=== PATIENT | male | born 1930 | race African-American/Black ===

== ENCOUNTER 2017-08-09 18:43 | Inpatient (IN) | payer OTHER ==
[~2017-08-09] VITALS: Ht 172.7 cm; Wt 68.2 kg
--- NOTE | ~2017-08-09 | HC ---
[facility] [place] [address] CONSULTATION Name: FARZANA FIORE Room #: [address] [place] [address] IN M.R.#: [id number] Admission: 08/09/17 Attend Phys: Triston Mathew DO Discharge: 08/14/17 Date of : 31 Report #: [id number] THIS REPORT FOR: //name// CC: Triston Cruz DATE OF SERVICE: 08/12/2017 HISTORY OF PRESENT ILLNESS: This is an 87-year-old male patient for whom a Neurology consultation was requested for the patient's memory problem as well as confusion. History is from the family as the patient is not able to provide any reliable history. Even from the family, the history is extremely poor. It looks like he was having some memory problems for some time, how long it was going on is not clear, looks like it was a chronic process for several months to several year. It has become recently worse. It would appear it has become worse with bladder infection for which he is being treated. Now they believe the memory problem is severe. REVIEW OF SYSTEMS: Indicate that he is admitted with urinary tract infection. He did have a generalized weakness. Record indicates that he has a history of thrombocytopenia. He is also admitted with renal problems and he is being followed by Nephrology in that regard. He is pretty significantly confused. I carried out 14-point review of system in this patient and that was the relevant 14-point review of system. PAST MEDICAL HISTORY: Does indicate that he does appear to have memory problems. FAMILY HISTORY: Negative for any early age stroke. SOCIAL HISTORY: He lives with his and I talked to them. He has a daughter and I talked to her and I understand he does not drink any alcohol. PHYSICAL EXAMINATION: Indicate that he is alert and responsive. We knew it was July. He could not tell me what date it is. His speech is somewhat slow, but is otherwise unremarkable. His memory and fund of knowledge is very poor. Cranial nerve examination 2-12 was attempted. The patient did not cooperate at all, but I do not see any focality. I tried to look at the fundus and he would not cooperate. He moves all four extremity and I believe his position sense is okay. I need to cooperate with the tone examination, cerebellar sign. Reflexes are fundus. He does not appear to have meningeal sign. He is reasonably well-developed individual who does not have any dysmorphic features of eyes, ears and face. His vision and hearing looks adequate. His pulses are difficult to feel. He has no edema, cyanosis or jaundice. Cardiac examination is unremarkable. No respiratory difficulty was noticed. Last blood pressure was 152/200, but his blood pressure has fluctuated and gone into 90s and even 70s. [address] [address] CONSULTATION Name: FARZANA FIORE Room #: 360-P [facility] IN M.R.#: [id number] Admission: 08/09/17 Attend Phys: Triston Mathew DO Discharge: 08/14/17 Date of : 31 Report #: [id number] LABORATORY DATA: Indicate platelet count now of 87, it was as low as 49. His white count is 2.7. He did have a CT scan of the head and that does not show any acute changes. His lab also indicate that he has high alkaline phosphatase, AST and ALT. IMPRESSION: This patient appeared to have encephalopathy. It is difficult to tell how much dementia he has underlying this. That will require further workup. Some workup has already been done like TSH and vitamin B12. I recommended further workup starting with MRI and an EEG, but the family refused that. RECOMMENDATIONS: I recommended to the family that we will do further workup. I wanted to start with MRI and EEG and the family does not think he needs that and they declined those testing. The patient is not able to make his decision. I told them to let me know if they change their mind. Please call if the patient's family change their mind and I will be happy to follow up on this patient. If not, the patient's family does not want any further testing and we will not be following up this patient. Thank you very much for this referral and if you have any question, please feel free to contact me. <ELECTRONICALLY SIGNED> By: Ignacio Roa MD 08/14/17 1348 1748 Ignacio Roa MD /nt
--- NOTE | ~2017-08-09 | HC ---
[facility] [place] [address] CONSULTATION Name: FARZANA FIORE Room #: 360- ADM IN M.R.#: [id number] Admission: 08/09/17 Attend Phys: Triston Mathew DO Discharge: Date of : 31 Report #: [id number] THIS REPORT FOR: //name// CC: Triston Cruz DATE OF SERVICE: 08/12/2017 REASON FOR CONSULTATION: Elevated creatinine. ATTENDING PHYSICIAN: Dr. Mathew. HISTORY OF PRESENT ILLNESS: The patient is giving very little in the way of history. History is taken from his and the electronic medical record. An 87-year-old gentleman, presents with progressive weakness and confusion. He had a serious injury a year and a half ago with some head trauma. Since that time, mentation has not quite been the same, although he is normally awake and alert. He can get around a little bit with a walker, before that it was fairly normal in terms of his walking. Apparently, he had some sort of surgery on his cervical spine at [facility] at that time. Over the last several weeks, he had a urinary tract infection and was treated with Bactrim. He became weak with poor appetite that improved and then worsened again with more symptoms including some hematuria and difficulty with urination, came to the Emergency Room here, was found to have evidence of urinary infection, but no growth. HOME MEDICATIONS: Listed as naproxen 220 mg p.r.n. pain q.8 hours, Proscar 5 mg daily, Carafate 1 gram q.i.d., hydrochlorothiazide, tamsulosin 0.4 mg daily, potassium 10 mEq daily, Bactrim one tab every 12 hours, omeprazole 20 mg daily, donepezil 5 mg daily, p.r.n. ondansetron. 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 He has had previous hernia repair and some prostate surgeries. There is some remote history of rectal bleeding. FAMILY HISTORY: Positive for cancer in his mother. SOCIAL HISTORY: He is a remote smoker, remote drinker, nothing recent. REVIEW OF SYSTEMS: Really cannot be obtained from the patient as he is quite lethargic. According to the , he has become more lethargic with worse appetite and p.o. intake, although that had gotten a little better yesterday, worse today. [facility] [address] [place] [address] CONSULTATION Name: FARZANA FIORE Room #: 360-P [facility] IN M.R.#: [id number] Admission: 08/09/17 Attend Phys: Triston Mathew DO Discharge: Date of : 31 Report #: [id number] EYES: His eyesight is okay. ENT: Hearing and swallowing are normally okay. ENDOCRINE: There is no diabetes. RESPIRATORY: He has no shortness of breath or wheezing. CARDIAC: There is no history of heart disease, heart failure, angina or palpitations. GASTROINTESTINAL: He had a remote rectal bleed, but no recent nausea, vomiting or diarrhea. GENITOURINARY: He has had a little bit of dysuria. NEUROLOGIC: A little bit of chronic confusion, of course. As noted, he is on Aricept. PHYSICAL EXAMINATION: GENERAL: This is a chronically ill-appearing gentleman. SKIN: Unremarkable. SKELETAL: Shows him to be nonobese, well developed, well nourished. HEENT: Extraocular movements are difficult to measure. Pupils are reactive. No scleral icterus. Hearing appears to be intact. Mucous membranes are slightly dry. Neck veins are not distended. CHEST: Shows slightly coarse breath sounds. HEART: Regular. ABDOMEN: Soft and nontender. EXTREMITIES: Show no edema. NEUROLOGIC: Just shows a lot of lethargy, but he can move all extremities. LABORATORY DATA: Urinalysis did show some white cells and some bacteria, no growth so far. Hepatitis screen was negative. LFTs were elevated. Hemoglobin 10.8. The AST was 48, had been 230; the ALT was 248, down now to 119. The albumin is only 2.1. ASSESSMENT AND PLAN: 1. Chronic kidney disease. Creatinine is 2.1, down from 2.6 with gentle hydration. The denies any chronic kidney disease and the sonogram was not that remarkable. He has had apparently hypertension that could be accounting for some of this. Paraprotein studies and urine protein studies are ordered. 2. Change in mental status. He may have a urinary infection that is only partially treated. We will need to possibly re-treat, so far there is no growth. 3. History of cervical spine injury with a fall. He apparently can get around with a walker. Right now, he is very weak. 4. History of prostate enlargement, status post prostate surgeries. By: 1142 1643 Jesse Tabor MD /nt
[2017-08-09 18:45] VITALS: BP 103/41
[2017-08-09] MEDS ORDERED: ALEVE220 MG PO (18:59)
[2017-08-09] MEDS ORDERED: PROSCAR 5MG TABL5 MG PO (18:59)
[2017-08-09] MEDS ORDERED: HYDROCHLOROTHIA25 M1 PO (19:00)
[2017-08-09] MEDS ORDERED: CARAFATE 1 GM TA1 G1 PO (19:00)
[2017-08-09] MEDS ORDERED: KLOR-CON 1010 MEQ PO (19:01)
[2017-08-09] MEDS ORDERED: LOPERAMIDE 2 MG2 M1 PO (19:01)
[2017-08-09] MEDS ORDERED: FLOMAX0.4 MG PO (19:01)
[2017-08-09] MEDS ORDERED: OMEPRAZOLE20 MG PO (19:02)
[2017-08-09] MEDS ORDERED: BACTRIM DS TAB1 EACH PO (19:02)
[2017-08-09] MEDS ORDERED: DONEPEZIL HCL 55 M1 PO (19:03)
[2017-08-09] MEDS ORDERED: ZOFRAN ODT4 MG DISSOLVE (19:03)
[2017-08-09 20:06] LABS: HEMATOCRIT 35.8 % (42.0-52.0); HEMOGLOBIN 11.8 gm/dL (14.0-18.0); MCH 26.3 pg (26.0-34.0); MCHC 33.1 g/dL (28.0-37.0); MCV 79.6 fL (80.0-100.0); RDW 16.6 % (10.5-14.5); WBC 3.5 thou/uL (4.0-11.0)
[2017-08-09 20:08] LABS: MANUAL DIFF YES
[2017-08-09 20:13] LABS: CALCIUM 10.1 mg/dL (8.5-10.1); CREATININE 2.6 mg/dL (0.7-1.3); POTASSIUM 5.2 mmol/L (3.5-5.1)
[2017-08-09 20:19] LABS: ALBUMIN 2.4 g/dL (3.4-5.0); DIRECT BILIRUBIN 0.5 mg/dL (<0.1-0.3); TOTAL BILIRUBIN 0.6 mg/dL (<0.1-1.0); TOTAL PROTEIN 5.8 g/dL (6.4-8.2)
[2017-08-09 20:30] LABS: ABSOLUTE NEUTROPHILS 3.3 thou/uL (1.4-8.2); TOTAL CELL COUNT 100
[2017-08-09 20:31] LABS: ANISOCYTOSIS 1+; POLYCHROMASIA OCCASIONAL
[2017-08-09 20:32] LABS: URINE BILIRUBIN NEGATIVE (Negative); URINE BLOOD NEGATIVE (Negative); URINE COLOR YELLOW; URINE GLUCOSE-RANDOM* NEGATIVE (Negative); URINE KETONES NEGATIVE (Negative); URINE PROTEIN (DIPSTICK) NEGATIVE (Negative)
[2017-08-09 20:32] LABS: MICROCYTES 1+; PLATELET COUNT 49 thou/uL (150-400)
[2017-08-09 20:34] LABS: URINE LEUKOCYTES-REFLEX 2+ (Negative)
[2017-08-09 20:36] LABS: SQUAMOUS None Seen /LPF (0-3)
[2017-08-09 20:37] LABS: CASTS None Seen /LPF (None Seen); CRYSTALS None Seen /LPF (None Seen); URINE RBC None Seen /HPF (0-2)
[2017-08-09 22:00] VITALS: BP 74/48; BP 85/45
[2017-08-10] VITALS (8 sets, daily range): BP systolic 76–111; BP diastolic 45–74
[2017-08-10 06:09] LABS: HEMOGLOBIN 10.7 gm/dL (14.0-18.0); MCHC 32.4 g/dL (28.0-37.0); MCV 80.1 fL (80.0-100.0); RBC 4.13 mil/uL (4.50-6.00); RDW 16.3 % (10.5-14.5); WBC 2.4 thou/uL (4.0-11.0)
[2017-08-10 06:29] LABS: CALCIUM 9.2 mg/dL (8.5-10.1); CREATININE 2.4 mg/dL (0.7-1.3); POTASSIUM 5.1 mmol/L (3.5-5.1); TOTAL BILIRUBIN 0.3 mg/dL (<0.1-1.0)
[2017-08-11 07:52] VITALS: BP 113/74
[2017-08-11 08:10] VITALS: BP 113/74
[2017-08-11 09:42] LABS: HEMOGLOBIN 10.8 gm/dL (14.0-18.0); MCH 26.3 pg (26.0-34.0); MCHC 32.8 g/dL (28.0-37.0); MCV 80.3 fL (80.0-100.0); PLATELET COUNT 68 thou/uL (150-400); RBC 4.11 mil/uL (4.50-6.00); RDW 16.7 % (10.5-14.5); WBC 2.4 thou/uL (4.0-11.0)
[2017-08-11 09:43] LABS: MANUAL DIFF YES
[2017-08-11 09:59] LABS: CALCIUM 9.8 mg/dL (8.5-10.1); CREATININE 2.2 mg/dL (0.7-1.3); POTASSIUM 4.9 mmol/L (3.5-5.1)
[2017-08-11 10:04] LABS: ALBUMIN 2.1 g/dL (3.4-5.0); TOTAL BILIRUBIN 0.2 mg/dL (<0.1-1.0); TOTAL PROTEIN 5.4 g/dL (6.4-8.2)
[2017-08-11 10:15] LABS: ABSOLUTE NEUTROPHILS 1.8 thou/uL (1.4-8.2); TOTAL CELL COUNT 50
[2017-08-11 10:16] LABS: ANISOCYTOSIS 2+; POLYCHROMASIA OCCASIONAL
[2017-08-11 10:57] VITALS: BP 89/30
[2017-08-11 12:34] VITALS: BP 103/75
[2017-08-11 17:30] VITALS: BP 131/67
[2017-08-11 19:30] VITALS: BP 131/68; BP 131/79
[2017-08-11 22:09] LABS: HEPATITIS C VIRUS AB <0.1 (0.0-0.9)
[2017-08-12 05:00] VITALS: BP 139/86
[2017-08-12 06:16] LABS: HEMOGLOBIN 10.8 gm/dL (14.0-18.0); MCH 26.1 pg (26.0-34.0); MCHC 32.8 g/dL (28.0-37.0); MCV 79.6 fL (80.0-100.0); PLATELET COUNT 87 thou/uL (150-400); RBC 4.14 mil/uL (4.50-6.00); RDW 16.8 % (10.5-14.5); WBC 2.7 thou/uL (4.0-11.0)
[2017-08-12 06:17] LABS: MANUAL DIFF YES
[2017-08-12 06:29] LABS: ALBUMIN 2.1 g/dL (3.4-5.0); CALCIUM 9.9 mg/dL (8.5-10.1); CREATININE 2.1 mg/dL (0.7-1.3); POTASSIUM 5.3 mmol/L (3.5-5.1); TOTAL BILIRUBIN 0.3 mg/dL (<0.1-1.0); TOTAL PROTEIN 5.4 g/dL (6.4-8.2)
[2017-08-12 08:10] VITALS: BP 143/86
[2017-08-12 08:29] LABS: ABSOLUTE NEUTROPHILS 1.9 thou/uL (1.4-8.2); PLATELET ESTIMATE DECREASED; TOTAL CELL COUNT 100
[2017-08-12 12:00] VITALS: BP 150/103
[2017-08-12 15:00] LABS: PROT/CREAT RATIO 0.3; URINE CREATININE-RANDOM* 29.4 mg/dL; URINE PROTEIN-RANDOM* 8.1 mg/dL (<11.9)
[2017-08-12 16:52] VITALS: BP 152/100
[2017-08-12 19:35] VITALS: BP 158/89
[2017-08-13 03:49] VITALS: BP 144/55
[2017-08-13 04:43] VITALS: BP 171/93
[2017-08-13 06:38] LABS: HEMATOCRIT 33.8 % (42.0-52.0); HEMOGLOBIN 11.1 gm/dL (14.0-18.0); MCH 26.2 pg (26.0-34.0); MCHC 32.9 g/dL (28.0-37.0); MCV 79.8 fL (80.0-100.0); PLATELET COUNT 87 thou/uL (150-400); RBC 4.23 mil/uL (4.50-6.00); RDW 16.6 % (10.5-14.5); WBC 2.8 thou/uL (4.0-11.0)
[2017-08-13 06:45] LABS: MANUAL DIFF YES
[2017-08-13 06:47] LABS: CALCIUM 10.2 mg/dL (8.5-10.1); CREATININE 1.6 mg/dL (0.7-1.3); POTASSIUM 5.3 mmol/L (3.5-5.1)
[2017-08-13 08:05] LABS: ABSOLUTE NEUTROPHILS 2.1 thou/uL (1.4-8.2); ANISOCYTOSIS 1+; METAMYELOCYTES 1 %; TOTAL CELL COUNT 100
[2017-08-13 08:06] LABS: OVALOCYTES FEW
[2017-08-13] MEDS ORDERED: KEFLEX500 M2 PO (08:23)
[2017-08-13 08:24] VITALS: BP 173/92
[2017-08-13 13:00] VITALS: BP 151/75
[2017-08-13 13:11] LABS: KAPPA FREE LIGHT CHAINS 82.1 mg/L (3.3-19.4); KAPPA/LAMBDA RATIO 2.46 (0.26-1.65); LAMBDA FREE LIGHT CHAINS 33.4 mg/L (5.7-26.3)
[2017-08-13 16:46] VITALS: BP 150/80
[2017-08-13 19:30] VITALS: BP 152/76
[2017-08-14 03:20] VITALS: BP 179/86
[2017-08-14 07:34] VITALS: BP 167/92
[2017-08-14] MEDS ORDERED: NORVASC5 MG PO (08:05)
[2017-08-15 07:12] LABS: A/G RATIO 0.9 (0.7-1.7); ALBUMIN 2.4 g/dL (2.9-4.4); ALPHA 1 0.3 g/dL (0.0-0.4); ALPHA 2 0.6 g/dL (0.4-1.0); BETA 0.9 g/dL (0.7-1.3); GAMMA 0.8 g/dL (0.4-1.8); M-SPIKE Not Observed g/dL (Not Observed)
== END 2017-08-14 13:31 | DRG 871 ==
LOC: ER 18:43 → 3W 21:15 → EROBS 21:15 → 3W 23:50
PROVIDERS: Emergency Medicine; Family Medicine; Internal Medicine Nephrology; Nurse Practitioner Acute Care
DX: A41.9 Sepsis, unspecified organism (principal); E43 Unspecified severe protein-calorie malnutrition; N17.0 Acute kidney failure with tubular necrosis; G93.40 Encephalopathy, unspecified; N39.0 Urinary tract infection, site not specified; D61.818 Other pancytopenia; I12.9 Hypertensive chronic kidney disease with stage 1 through stage 4 chronic kidney disease, or unspecified chronic kidney disease; E86.0 Dehydration; D69.6 Thrombocytopenia, unspecified; N18.3 Chronic kidney disease, stage 3 (moderate); E83.42 Hypomagnesemia; R74.0 Nonspecific elevation of levels of transaminase and lactic acid dehydrogenase [LDH]; F03.90 Unspecified dementia, unspecified severity, without behavioral disturbance, psychotic disturbance, mood disturbance, and anxiety; T37.0X5A Adverse effect of sulfonamides, initial encounter; Z28.21 Immunization not carried out because of patient refusal; Z68.22 Body mass index [BMI] 22.0-22.9, adult; Y92.89 Other specified places as the place of occurrence of the external cause; Z79.899 Other long term (current) drug therapy; Z87.891 Personal history of nicotine dependence; Z80.8 Family history of malignant neoplasm of other organs or systems
CPT/HCPCS: 10879

== ENCOUNTER 2017-08-30 15:22 | Emergency (ER) | payer MEDICARE ==
[~2017-08-30] VITALS: Ht 172.7 cm; Wt 65.8 kg
[~2017-08-30 15:22] MED LIST: ALEVE220 MG PO; BACTRIM DS TAB1 EACH PO; CARAFATE 1 GM TA1 G1 PO; DONEPEZIL HCL 55 M1 PO; FLOMAX0.4 MG PO; HYDROCHLOROTHIA25 M1 PO; KEFLEX500 M2 PO; KLOR-CON 1010 MEQ PO; LOPERAMIDE 2 MG2 M1 PO; NORVASC5 MG PO; OMEPRAZOLE20 MG PO; PROSCAR 5MG TABL5 MG PO; ZOFRAN ODT4 MG DISSOLVE
[2017-08-30 16:27] LABS: HEMATOCRIT 34.4 % (42.0-52.0); HEMOGLOBIN 11.3 gm/dL (14.0-18.0); MCH 26.3 pg (26.0-34.0); MCHC 32.9 g/dL (28.0-37.0); MCV 79.9 fL (80.0-100.0); PLATELET COUNT 184 thou/uL (150-400); RDW 17.1 % (10.5-14.5)
[2017-08-30 16:39] LABS: ANION GAP 6 mmol/L (7-16); BUN 52 mg/dL (7-18); CALCIUM 10.5 mg/dL (8.5-10.1); CHLORIDE 105 mmol/L (98-107); CO2 30 mmol/L (21-32); CREATININE 1.2 mg/dL (0.7-1.3); GLUCOSE 92 mg/dL (74-106); POTASSIUM 4.6 mmol/L (3.5-5.1); SODIUM 141 mmol/L (136-145)
[2017-08-30 16:45] LABS: DIRECT BILIRUBIN < 0.1 mg/dL (<0.1-0.3); SGOT 36 U/L (15-37); SGPT 46 U/L (30-65); TOTAL BILIRUBIN 0.2 mg/dL (<0.1-1.0); TOTAL PROTEIN 6.9 g/dL (6.4-8.2)
[2017-08-30 17:00] LABS: ABSOLUTE NEUTROPHILS 1.4 thou/uL (1.4-8.2); ANISOCYTOSIS 2+; MICROCYTES 1+
[2017-08-30 17:01] LABS: POIKILOCYTOSIS SLIGHT
[2017-08-30 17:21] LABS: URINE BILIRUBIN NEGATIVE (Negative); URINE BLOOD NEGATIVE (Negative); URINE CLARITY CLEAR; URINE COLOR YELLOW; URINE GLUCOSE-RANDOM* NEGATIVE (Negative); URINE KETONES NEGATIVE (Negative); URINE LEUKOCYTES NEGATIVE (Negative); URINE NITRITE NEGATIVE (Negative); URINE PROTEIN (DIPSTICK) NEGATIVE (Negative); URINE SPECIFIC GRAVITY <= 1.005 (1.005-1.035); URINE UROBILINOGEN 0.2 E.U./dl (0.2-1.0)
[2017-08-30 17:49] VITALS: BP 115/64
== END 2017-08-30 18:07 | disposition home or self-care (01) ==
LOC: ER 15:22
PROVIDERS: Nurse Practitioner
DX: R78.9 Finding of unspecified substance, not normally found in blood (principal); Z98.890 Other specified postprocedural states

== ENCOUNTER 2017-10-05 20:29 | Inpatient (IN) | payer MEDICARE ==
[~2017-10-05] VITALS: Ht 172.7 cm; Wt 69.4 kg
--- NOTE | ~2017-10-05 | HC ---
[facility] [address] [address] [place] [address] CONSULTATION Name: FARZANA FIORE Room #: 354-P [facility] IN M.R.#: [id number] Admission: 10/05/17 Attend Phys: Triston Mathew DO Discharge: 10/07/17 Date of : 31 Report #: [id number] THIS REPORT FOR: //name// CC: JOHN physician/PCP Triston Mathew DATE OF SERVICE: 10/07/2017 HISTORY OF PRESENT ILLNESS: The patient is an 87-year-old male who was admitted with generalized weakness, noted to have acute respiratory failure, suspected aspiration pneumonia and dehydration, acute renal insufficiency, toxic metabolic encephalopathy. His respiratory failure is resolving. He has been on IV Levaquin for the aspiration pneumonia. He has been given IV fluids to help with acute renal failure. He has been okay and put on diet. He is on pureed with nectar-thickened liquids. We are seeing him in rehabilitation medicine consultation. PAST MEDICAL HISTORY: Includes BPH, hypertension, he had a prior cervical injury and has residual left upper extremity weakness, history of GERD. He has had hernia repair, prostate surgery x 2, history of falls and rectal bleeding. MEDICATIONS: Please see the full medication listing. ALLERGIES: No known drug allergies. SOCIAL HISTORY: Lives with his , house 2 steps in. They are apparently arranging for a hospital bed for him. The notes that her daughter is there as well and they will assist him getting out of bed. They also will need to help him manually, although at times he is able to do more for himself. He has had a recent stay at the [facility] going home last month. REVIEW OF SYSTEMS: Did not offer any current complaints of chest pain, shortness of breath, abdominal discomfort. No focal extremity pain complaints. PHYSICAL EXAMINATION: GENERAL: An 87-year-old male, in no obvious distress. VITAL SIGNS: Last recorded temperature 98.8, pulse 79, respirations 18, blood pressure 145/84. NEUROLOGIC: The patient is lying in bed. He was sleeping, but I could arouse him. Appears to have some left facial droop with depressed nasolabial fold. He was able to answer in short statements, but tends to defer more to his . EOMs otherwise appeared intact and facies appeared symmetric. Does have definite left upper extremity proximal weakness with decreased tone. He appears weaker more involving the shoulder than the elbow, wrist and hand. Shoulder strength appeared less than antigravity. Elbow, wrist and hand, probably a grade 3. Right upper extremity strength is better at a grade 4-. Bilateral [address] [address] CONSULTATION Name: FARZANA FIORE Room #: 354-P [facility] IN M.R.#: [id number] Admission: 10/05/17 Attend Phys: Triston Mathew DO Discharge: 10/07/17 Date of : 31 Report #: [id number] lower extremity strength is probably at 3+. No focal calf swelling. He has been max assist supine to sit edge of bed and stood with max assist. IMPRESSION: 1. Toxic metabolic encephalopathy. 2. Severe dysphagia, currently on pureed with nectar-thickened liquid. 3. Acute respiratory failure. 4. Suspected aspiration pneumonia. 5. Acute renal insufficiency. 6. Premorbid cervical injury with left upper extremity proximal greater than distal weakness. PLAN: Therapies are continuing their evaluation. Discussion with the patient's and daughter regarding rehab therapy issues. We will be glad to follow along with you regarding his rehab therapy needs. Pending his therapy evaluations. Insurance will need to be checked regarding any rehab therapy from here. We will be glad to follow along with you. <ELECTRONICALLY SIGNED> By: Nav Barrientos MD 10/08/17 1554 1103 2210 Nav Barrientos MD /[facility]
--- NOTE | ~2017-10-05 | EKG ---
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: 99 : 1930 Requested By: Silvino Gutiérrez Order Number: [id number] MD: Gm Yadav Measurements Intervals [place] Rate: 55 P: 17 LA: 355 QRS: 9 QRSD: 105 T: 32 QT: 455 QTc: 436 Interpretive Statements Sinus rhythm Ventricular premature complex Prolonged LA interval Early R-wave progression Baseline wander in lead(s) V4 No previous ECG available for comparison Electronically Signed On 10-07-2017 7:30:31 NEUROLOGY MANAGER by Gm Yadav [email or web address] <ELECTRONICALLY SIGNED> By: Gm Yadav MD, [facility] 10/07/17 0730 45 45 Gm Yadav MD, FAC /EPI
[2017-10-05 20:31] VITALS: BP 106/57
[2017-10-05] MEDS ORDERED: MUCINEX600 MG PO (20:38)
[2017-10-05] MEDS ORDERED: AZITHROMYCIN 2250 MG PO (20:39)
[2017-10-05 21:13] LABS: ABSOLUTE NEUTROPHILS 2.6 thou/uL (1.4-8.2); BASOPHILS 0.3 % (0.0-2.0); EOSINOPHILS 0.7 % (0.0-3.0); HEMOGLOBIN 12.2 gm/dL (14.0-18.0); LYMPHOCYTES 15.6 % (24.0-44.0); MCH 25.8 pg (26.0-34.0); MCHC 32.1 g/dL (28.0-37.0); MCV 80.4 fL (80.0-100.0); MONOCYTES 6.3 % (1.0-8.0); PLATELET COUNT 73 thou/uL (150-400); POLYS 77.1 % (36.0-66.0); RBC 4.73 mil/uL (4.50-6.00); RDW 17.9 % (10.5-14.5); WBC 3.4 thou/uL (4.0-11.0)
[2017-10-05 21:16] LABS: BE(vivo) -0.3 mmol/L (-2 to +3); HCO3 26.7 mmol/L (22.0-26.0); PCO2 54.2 mmHg (35.0-45.0); PO2 69.8 mmHg (80.0-100.0); sO2 92.3 % (92.0-98.0)
[2017-10-05 21:17] LABS: pH 7.311 (7.360-7.450)
[2017-10-05 21:22] LABS: ANION GAP 5 mmol/L (7-16); BUN 46 mg/dL (7-18); CALCIUM 11.2 mg/dL (8.5-10.1); CHLORIDE 113 mmol/L (98-107); CO2 30 mmol/L (21-32); CREATININE 1.6 mg/dL (0.7-1.3); GLUCOSE 86 mg/dL (74-106); POTASSIUM 5.1 mmol/L (3.5-5.1); SODIUM 148 mmol/L (136-145)
[2017-10-05 21:30] LABS: MAGNESIUM 1.8 mg/dL (1.8-2.4); SGOT 38 U/L (15-37); SGPT 37 U/L (30-65); TOTAL BILIRUBIN 0.4 mg/dL (<0.1-1.0); TOTAL PROTEIN 6.6 g/dL (6.4-8.2); TROPONIN-I < 0.04 ng/mL (<0.06)
[2017-10-05 22:32] LABS: URINE BILIRUBIN NEGATIVE (Negative); URINE BLOOD NEGATIVE (Negative); URINE CLARITY CLEAR; URINE COLOR YELLOW; URINE GLUCOSE-RANDOM* NEGATIVE (Negative); URINE KETONES NEGATIVE (Negative); URINE LEUKOCYTES-REFLEX NEGATIVE (Negative); URINE NITRITE-REFLEX NEGATIVE (Negative); URINE PROTEIN (DIPSTICK) NEGATIVE (Negative); URINE SPECIFIC GRAVITY 1.025 (1.005-1.035); URINE UROBILINOGEN 0.2 E.U./dl (0.2-1.0)
[2017-10-05 22:45] VITALS: BP 101/62
[2017-10-05 22:46] VITALS: BP 101/62
[2017-10-05 23:20] VITALS: BP 139/76
[2017-10-06 04:00] VITALS: BP 116/80
[2017-10-06 04:15] VITALS: BP 116/70
[2017-10-06 07:38] LABS: HEMATOCRIT 34.1 % (42.0-52.0); HEMOGLOBIN 11.1 gm/dL (14.0-18.0); MCH 26.2 pg (26.0-34.0); MCHC 32.6 g/dL (28.0-37.0); MCV 80.2 fL (80.0-100.0); RBC 4.24 mil/uL (4.50-6.00); RDW 17.7 % (10.5-14.5); WBC 3.3 thou/uL (4.0-11.0)
[2017-10-06 07:41] LABS: CALCIUM 10.2 mg/dL (8.5-10.1); CREATININE 1.4 mg/dL (0.7-1.3); POTASSIUM 5.2 mmol/L (3.5-5.1)
[2017-10-06 09:00] VITALS: BP 108/61
[2017-10-06 17:12] VITALS: BP 103/69
[2017-10-06 20:00] VITALS: BP 130/81
[2017-10-07 03:47] VITALS: BP 118/74
[2017-10-07 06:21] LABS: ABSOLUTE NEUTROPHILS 2.6 thou/uL (1.4-8.2); BASOPHILS 0.3 % (0.0-2.0); EOSINOPHILS 0.4 % (0.0-3.0); HEMATOCRIT 33.8 % (42.0-52.0); HEMOGLOBIN 10.8 gm/dL (14.0-18.0); LYMPHOCYTES 14.8 % (24.0-44.0); MCH 25.8 pg (26.0-34.0); MCV 80.6 fL (80.0-100.0); MONOCYTES 8.8 % (1.0-8.0); PLATELET COUNT 88 thou/uL (150-400); POLYS 75.7 % (36.0-66.0); RDW 18.4 % (10.5-14.5); WBC 3.5 thou/uL (4.0-11.0)
[2017-10-07 06:28] LABS: CALCIUM 10.5 mg/dL (8.5-10.1); CREATININE 1.6 mg/dL (0.7-1.3); POTASSIUM 5.2 mmol/L (3.5-5.1)
[2017-10-07 08:00] VITALS: BP 145/84
[2017-10-07 08:21] VITALS: BP 145/84
[2017-10-07] MEDS ORDERED: LEVAQUIN 500 M500 M2 PO (15:03)
[2017-10-07] MEDS ORDERED: DUONEB 2.5-0.5 M3 ML INH (15:03)
[2017-10-07] MEDS ORDERED: VENTOLIN HFA 1818 GM INH (15:05)
[2017-10-07] MEDS ORDERED: NEBULIZER (15:05)
[2017-10-07 15:26] VITALS: BP 145/84
[2017-10-07 15:37] VITALS: BP 145/84
== END 2017-10-07 16:20 | disposition hospice, inpatient (51) | DRG 177 ==
LOC: ER 20:29 → 3W 22:06 → EROBS 22:06 → 3W 22:46
PROVIDERS: Emergency Medicine; Family Medicine; Nurse Practitioner
DX: J69.0 Pneumonitis due to inhalation of food and vomit (principal); G92 Toxic encephalopathy; J96.01 Acute respiratory failure with hypoxia; N17.9 Acute kidney failure, unspecified; E87.2 Acidosis; D61.818 Other pancytopenia; I12.9 Hypertensive chronic kidney disease with stage 1 through stage 4 chronic kidney disease, or unspecified chronic kidney disease; N18.9 Chronic kidney disease, unspecified; E86.0 Dehydration; E83.52 Hypercalcemia; N40.0 Benign prostatic hyperplasia without lower urinary tract symptoms; K21.9 Gastro-esophageal reflux disease without esophagitis; R13.10 Dysphagia, unspecified; Z60.2 Problems related to living alone
CPT/HCPCS: 10080

== ENCOUNTER 2018-09-26 13:28 | Inpatient (IN) | payer MEDICARE ==
[~2018-09-26] VITALS: Ht 170.2 cm; Wt 65.3 kg
[~2018-09-26 13:28] MED LIST changes: +AZITHROMYCIN 2250 MG PO; +DUONEB 2.5-0.5 M3 ML INH; +LEVAQUIN 500 M500 M2 PO; +MUCINEX600 MG PO; +NEBULIZER; +VENTOLIN HFA 1818 GM INH
[2018-09-26 13:29] VITALS: BP 105/78
[2018-09-26 14:29] LABS: BASOPHILS 0.2 % (0.0-2.0); EOSINOPHILS 0.2 % (0.0-3.0); HEMATOCRIT 33.5 % (42.0-52.0); HEMOGLOBIN 10.7 gm/dL (14.0-18.0); LYMPHOCYTES 4.7 % (24.0-44.0); MCH 24.1 pg (26.0-34.0); MCV 75.5 fL (80.0-100.0); MONOCYTES 8.1 % (1.0-8.0); POLYS 86.8 % (36.0-66.0); RBC 4.44 mil/uL (4.50-6.00); RDW 21.4 % (10.5-14.5); WBC 5.8 thou/uL (4.0-11.0)
[2018-09-26 14:41] LABS: ANION GAP 5 mmol/L (7-16); BUN 47 mg/dL (7-18); CALCIUM 11.5 mg/dL (8.5-10.1); CHLORIDE 108 mmol/L (98-107); CO2 27 mmol/L (21-32); CREATININE 1.6 mg/dL (0.7-1.3); GLUCOSE 93 mg/dL (74-106); SODIUM 140 mmol/L (136-145)
[2018-09-26 14:49] LABS: ALBUMIN 3.2 g/dL (3.4-5.0); MAGNESIUM 1.5 mg/dL (1.8-2.4); SGOT 17 U/L (15-37); SGPT 21 U/L (30-65); TOTAL BILIRUBIN 0.3 mg/dL (<0.1-1.0); TOTAL PROTEIN 7.8 g/dL (6.4-8.2); TROPONIN-I <0.06 ng/mL (<0.06)
[2018-09-26 14:56] LABS: MICROCYTES SLIGHT
[2018-09-26] MEDS ORDERED: IPRAT-ALBUT 0.5-3 ML INH (15:01)
[2018-09-26] MEDS ORDERED: VITAMINC500 PO (15:01)
[2018-09-26] MEDS ORDERED: APAP650 PO (15:02)
[2018-09-26] MEDS ORDERED: REMERON15 MG PO (15:02)
[2018-09-26] MEDS ORDERED: HYDROCHLOROTHIA25 M2 PO (15:03)
[2018-09-26 15:05] LABS: TARGET CELLS OCCASIONAL
[2018-09-26 15:06] LABS: PLATELET COUNT 89 thou/uL (150-400)
[2018-09-26 16:16] VITALS: BP 105/78
--- NOTE | 2018-09-26 16:20 | EKG ---
[address] [place] [address] ELECTROCARDIOGRAM REPORT Name: MARGARITO FIORE Room #: 170-5 ADM IN M.R.#: [id number] Admission: 09/26/18 Attend Phys: Nish Clark MD Discharge: Date of : 31 Report #: [id number] THIS REPORT FOR: //name// [facility] ED Test Date: 2018-09-26 Test Time: 14:30:42 Pat Name: MARGARITO FIORE Department: Room: 170 Gender: M Sustain Engineer: WG : 1930 Requested By: Silvino Gutiérrez Order Number: [id number] MD: Gm Yadav Measurements Intervals [place] Rate: 61 P: 0 GA: 51 QRS: 12 QRSD: 129 T: 47 QT: 409 QTc: 412 Interpretive Statements Sinus rhythm Early R-wave progression Compared to ECG 10/05/2017 20:46:37 Ventricular premature complex(es) no longer present Electronically Signed On 09-26-2018 16:20:17 INSTRUCTIONAL DESIGN MANAGER by Gm Yadav [email or web address] <ELECTRONICALLY SIGNED> By: Gm Yadav MD, [facility] 09/26/18 1620 1430 1430 Gm Yadav MD, FAC /EPI
[2018-09-26 16:46] VITALS: BP 100/69
--- NOTE | 2018-09-26 18:50 | NUR ---
TO UNIT BY CART FROM Rogelio, REPORT FROM JONES Oswald, RN, AND DTR AT BEDSIDE. FAMILY ORIENTED TO UNIT; PATIENT DYSPHASIC. SUPPORTIVE INTERVENTIONS STARTED ORDERED.
[2018-09-26 20:03] VITALS: BP 106/63
[2018-09-27 04:53] VITALS: BP 100/59
--- NOTE | 2018-09-27 04:55 | NUR ---
Patient making slow progress towards outcome goals. Oxygenation optimal on room air. Crackles right lower lobe. Able to oral suctions self. Alert, oriented to person and place. Very hard or hearing. Able to follow commands. Incontinent, very stiff requiring turning every 2 hours. IVFluids infusing. Spouse at bedside, earlier fed 100 of dinner.
[2018-09-27 05:24] LABS: HEMATOCRIT 31.5 % (42.0-52.0); HEMOGLOBIN 9.8 gm/dL (14.0-18.0); MCH 23.4 pg (26.0-34.0); MCV 75.5 fL (80.0-100.0); RBC 4.17 mil/uL (4.50-6.00); WBC 4.4 thou/uL (4.0-11.0)
[2018-09-27 05:38] LABS: CALCIUM 10.8 mg/dL (8.5-10.1); CREATININE 1.5 mg/dL (0.7-1.3); MAGNESIUM 2.5 mg/dL (1.8-2.4)
[2018-09-27 05:46] LABS: POTASSIUM 5.4 mmol/L (3.5-5.1)
[2018-09-27 09:16] VITALS: BP 113/62
[2018-09-27 15:24] VITALS: BP 112/68
--- NOTE | 2018-09-27 17:13 | NUR ---
PREFERRED TO STAY IN BED MOST OF THE DAY. HE DENIES PAIN WHEN ASKED. HAD A BM TODAY, SOFT LOOSE STOOL. OFFERED TO SIT PATIENT TO CHAIR BUT HE REFUSED. CONT ON ABT AND NO ADVERSE EFFECTS NOTED.
[2018-09-27 19:40] VITALS: BP 109/69
--- NOTE | 2018-09-27 23:26 | NUR ---
2000 - PT LAYING IN BED IN NAD. HE IS SLEEPING. AT BEDSIDE. SHE STATES NO COMPLAINTS OR NEEDS.
[2018-09-28 03:30] VITALS: BP 124/77
[2018-09-28 05:39] LABS: HEMATOCRIT 30.1 % (42.0-52.0); HEMOGLOBIN 9.6 gm/dL (14.0-18.0); MCH 24.3 pg (26.0-34.0); MCV 75.9 fL (80.0-100.0); RBC 3.97 mil/uL (4.50-6.00); RDW 21.2 % (10.5-14.5); WBC 2.9 thou/uL (4.0-11.0)
[2018-09-28 05:53] LABS: CALCIUM 10.7 mg/dL (8.5-10.1); CREATININE 1.3 mg/dL (0.7-1.3); MAGNESIUM 2.3 mg/dL (1.8-2.4); POTASSIUM 4.9 mmol/L (3.5-5.1)
[2018-09-28 07:47] VITALS: BP 143/90
[2018-09-28 16:15] VITALS: BP 133/68
[2018-09-28 19:25] VITALS: BP 128/78
--- NOTE | 2018-09-28 19:36 | NUR ---
PREFERS TO STAY IN BED. CONT ON Q2 TURN. DENIES PAIN. CONT TO PROGRESS TOWARDS DISCHARGE GOALS.
[2018-09-29 03:10] VITALS: BP 145/88
[2018-09-29 04:08] LABS: HEMATOCRIT 29.9 % (42.0-52.0); HEMOGLOBIN 9.5 gm/dL (14.0-18.0); MCH 23.8 pg (26.0-34.0); MCHC 31.7 g/dL (28.0-37.0); MCV 75.1 fL (80.0-100.0); RBC 3.98 mil/uL (4.50-6.00); RDW 21.1 % (10.5-14.5); WBC 2.4 thou/uL (4.0-11.0)
[2018-09-29 04:14] LABS: CALCIUM 10.7 mg/dL (8.5-10.1); CREATININE 1.3 mg/dL (0.7-1.3); MAGNESIUM 2.1 mg/dL (1.8-2.4); POTASSIUM 4.3 mmol/L (3.5-5.1)
--- NOTE | 2018-09-29 05:59 | NUR ---
Pt. having a hard time getting comfortable despite frequent repositioning. Tylenol given with some help. He slept some , at bedside. Periods of being restless during the night. Will continue to monitor.
[2018-09-29 08:11] VITALS: BP 141/86
[2018-09-29 12:02] VITALS: BP 131/68
--- NOTE | 2018-09-29 13:25 | NUR ---
ASSESSMENT: CM REVIEWED CHART AND MET WITH PATIENT AND HIS AT THE BEDSIDE. PT IS HARD OF HEARING AND PROVIDED ALOT OF INFORMATION. PT WAS ADMITTED WITH PNEUMONIA/MICHELLE. PT WAS LIVING AT HOME WITH HIS PRIOR TO ADMISSION WITH SERVICES FROM [facility]. PT HAS ONE STEP TO ENTER THE HOME THROUGH THE DEN AND THEN ALL HIS NEEDS ARE ON ONE LEVEL. PT REPORTS HAVING A WALKER/WHEELCHAIR/GRAB BAR/SHOWER BENCH. PT HAS BEEN TO [facility] IN THE PAST BUT THEN HIS INSURANCE CHANGED AND REPORTS THE LAST PLACE HE WAS AT WAS [facility]. PT LIKELY NEEDING SNF AND PT AND WANTED REFERRAL SENT TO [facility]. CM FAXED REFERRAL. CM ALSO LEFT FOR ADMISSIONS. CM ALSO CONTACTED [facility] TO NOTIFY THAT PATIENT WAS IN THE HOSPITAL. CM WILL CONTINUE TO FOLLOW.
[2018-09-29 17:23] VITALS: BP 143/98
--- NOTE | 2018-09-29 17:25 | NUR ---
PATIENT RESTED IN BED MOST OF THE DAY. ACCEPTED AND WAS UP ON CHAIR FOR A COUPLE OF HOURS. HAS NOT VOICED COMPLAIN OF PAIN. CONT TO PROGRESS TOWARDS DISCHARGE GOALS. WILL CONT WITH PLAN OF CARE.
[2018-09-29 19:41] VITALS: BP 133/77
[2018-09-30 04:02] LABS: CALCIUM 10.7 mg/dL (8.5-10.1); CREATININE 1.1 mg/dL (0.7-1.3); POTASSIUM 4.2 mmol/L (3.5-5.1)
[2018-09-30 04:27] VITALS: BP 143/86
--- NOTE | 2018-09-30 05:50 | NUR ---
OF PT ROOMING IN. OF PATIENT CAN OFFER WHAT THE PT IS NEEDING. PT ABLE TO SUCTION HIMSELF WITH A YANKER AND HAS COPIOUS AMOUNTS OF ORAL SECRETIONS. PT HAS INCONTINENCE. VSS. HOURLY ROUNDING.
[2018-09-30 07:50] VITALS: BP 155/99
--- NOTE | 2018-09-30 14:37 | NUR ---
ON-GOING ASSESSMENT: CM REVIEWED CHART AND SPOKE WITH LIASON AT [facility] WHO STATE MEDICALLY THEY CAN ACCEPT THE PATIENT BUT THEY ARE STILL WAITING ON INSURANCE AUTHORIZATION. LIASON STATING IS REQUESTING PT/OT NOTES FROM TODAY WELL PROGRESS NOTES AND MEDICATIONS. CM FAXED INFORMATION TO [facility] AND AWAITING FEEDBACK FROM FACILITY. CHART COPY WAS ORDERED [facility] INSURANCE AUTH IS RECEIVED. CM SPOKE WITH TO UPDATE AND ALSO NOTIFIED THAT PATIENT WILL HAVE A PRIVATE ROOM THERE. LIASON FROM [facility] BE REACHED AT [phone] IF NEEDED AND TO FACILITATE TRANSPORTATION OR CAN CONTACT THERESA IN ADMISSIONS TO FURTHER ARRANGE.
[2018-09-30 15:22] VITALS: BP 126/70
--- NOTE | 2018-09-30 18:12 | NUR ---
PT UP TO CHAIR TODAY AND WAS FEED BY MILL PLATFORM SUPERVISOR. REMAIN INCONTINENT OF URINE AT TIMES. WILL DISCHARGE TO [facility] IN THE AM.
[2018-09-30 19:45] VITALS: BP 138/94
[2018-10-01 00:15] VITALS: BP 98/66
--- NOTE | 2018-10-01 04:44 | NUR ---
PT STILL NOT EATING VERY MUCH. PT HAD 4X INCONT OVER SHIFT. DISCUSSED PUTTING EXTERNAL CATH ON AGAIN. FOLLOWING POC WITH D5 INFUSING. WAFFLE CUSHION UNDER PT AT NIGHT TO PREVENT PRESSURE ULCERS AND LOW LOSS AIR MATTRESS IS ATTACHED TO BED. PT HAS BECOME MORE AND MORE DEFIANT OVER LAST DAY. PT SAYS ITS BECAUSE HE OFF HIS DEMENTIA MEDICATION. I EDUCATED HERE ON THE REASON WHY IT WAS STOPPED. PT IS PULLING AT IV SITES, AND TUBING. WANTED MEDICATION RESTARTED AND OR SOFT WICHO PUT ON. I SPOKE TO ABELINO PAGAN AND GOT ONE TIME OF DOSE OF HALIDOL. RESULTS WERE GOOD AND PT NOW RESTING COMFORTABLY AND WITHOUT ANY OTHER ISSUES. HOURLY ROUNDING.
[2018-10-01 05:00] VITALS: BP 122/58
[2018-10-01 07:16] VITALS: BP 125/73
[2018-10-01 12:08] VITALS: BP 105/57
--- NOTE | 2018-10-01 15:07 | NUR ---
ON-GOING ASSESSMENT: CM REVIEWED CHART. CM SPOKE WITH [facility] WHO STATES THEY ARE NOT APPROVING A SNF STAY STATING PATIENT IS AT HIS BASELINE HE WAS PRIOR TO COMING INTO THE HOSPITAL WHEN WAS CARING FOR HIM AT HOME. CM REACHED OUT TO SEE IF A PEER TO PEER COULD BE DONE FOR DENIAL FOR SNF AND THEY STATE THEY DO NOT OFFER THOSE BUT AN APPEAL CAN BE DONE. CM WENT AND SPOKE WITH PATIENTS TO DISCUSS. CM DISCUSSED PATIENT COULD RETURN BACK HOME WITH [facility] AT DISCHARGE LIKE HE WAS DOING PRIOR TO ADMISSION AND WANTS TO RESUME THIS. CM CONTACTED [facility] TO NOTIFY THAT PATIENT LIKELY RETURN HOME WITH THEIR SERVICES ONCE MEDICALLY STABLE. CM DISCUSSED WITH THAT PATIENT MAY QUALIFY FOR HOSPICE/PALLIATIVE CARE BUT IS NOT INTERESTED IN THIS. CM ALSO DISCUSSED THAT [facility] WHO THEY USE HAS HOSPICE SERVICES IF SHE IS EVER INTERSTED IN TRANSITIONING. PT IS MORE LETHARGIC TODAY AND NOT READY FOR DISCHARGE.
[2018-10-01 16:55] VITALS: BP 103/84
--- NOTE | 2018-10-01 19:15 | NUR ---
Pt very drowsy at the beginning of the shift. Pt was arousable and would attempt to follow simple commands but would fall back to sleep. Video swallow was deferred until pt more awake. Pt did wake up more mid afternoon and was able to be fed small amount of his lunch. Small bites of pureed diet fed to pt by nurse and his . No apparent choking or difficulty swallowing observed. Respirations nonlabored. External catheter in place with adequate urine output. at bedside throughout the shift. discussed plans for pt to return home from the hosptal. No areas of skin breakdown observed. New saline lock placed today for site rotation. Report given to oncoming RN.
[2018-10-01 19:35] VITALS: BP 127/70
--- NOTE | 2018-10-02 04:44 | NUR ---
Patient making slow progress towards outcome goals. Fall precautions in place. Patient is total care and needs to be fed, appetite poor. Spouse prefers to take patient home with home health. Vital signs stable. IVfluids infusing.
[2018-10-02 04:55] VITALS: BP 130/83
[2018-10-02 05:39] LABS: CALCIUM 10.2 mg/dL (8.5-10.1); POTASSIUM 3.8 mmol/L (3.5-5.1)
[2018-10-02 07:41] VITALS: BP 128/84
--- NOTE | 2018-10-02 13:28 | NUR ---
ODALIS reviewed chart and spoke with nursing and attending physician. Pt's insurance denied admission to SNF. At this time, plan is for pt to d/c home with [facility] services. Attending physician discussed possible peg tube placement with pt's today. Pt's to discuss with family. ODALIS is following to assist as needed with discharge planning.
--- NOTE | 2018-10-02 15:05 | NUR ---
ASSUMED PATIENT CARE AT 0715. A&OX1. SPOUSE AT BEDSIDE. Q2 TURN. NEEDS TO BE FED. SUCTION AT BEDSIDE FOR SECRETIONS. PHYSICAL THERAPY WAS ABLE TO GET PATIENT TO THE [facility] TODAY AND PATIENT HAD A BOWEL MOVEMENT. HOSPITALIST MENTIONED POSSIBLY PLACING A PEG TUBE FOR NUTRITION PER CASE MANAGEMENT. SPOUSE WANTS TO TAKE PATIENT HOME WITH HOME HEALTH. SLOWLY WORKING TOWARD DC GOALS.
[2018-10-02 16:37] VITALS: BP 124/83
[2018-10-02 19:32] VITALS: BP 126/77
[2018-10-03 04:03] VITALS: BP 116/73
--- NOTE | 2018-10-03 04:13 | NUR ---
Patient making progress towards outcome goals. Vital signs stable. Total care. Poor appetite, took few bites of pudding. IVFluids infusing. Incontinent or urine, male external catheter leaking and replaced. Turned to sides.
[2018-10-03 04:49] LABS: HEMATOCRIT 22.5 % (42.0-52.0); HEMOGLOBIN 7.4 gm/dL (14.0-18.0); MCH 24.3 pg (26.0-34.0); MCHC 32.8 g/dL (28.0-37.0); MCV 74.1 fL (80.0-100.0); PLATELET COUNT 101 thou/uL (150-400); RBC 3.04 mil/uL (4.50-6.00); RDW 21.4 % (10.5-14.5); WBC 2.7 thou/uL (4.0-11.0)
[2018-10-03 07:08] LABS: ABSOLUTE NEUTROPHILS 1.6 thou/uL (1.4-8.2); ANISOCYTOSIS 1+; ATYPICAL LYMPHS 2 %; POIKILOCYTOSIS SLIGHT
[2018-10-03 07:09] LABS: BURR CELLS OCCASIONAL; HYPOCHROMASIA SLIGHT; MICROCYTES SLIGHT; OVALOCYTES OCCASIONAL
[2018-10-03 07:50] VITALS: BP 95/67
--- NOTE | 2018-10-03 09:23 | NUR ---
ASSUMED PT CARE AT 0700. ASSESSMENT COMPLETED AND IS CHARTED. VSS. PT AWAKE, ALERT/ORIENTED X4. REPORTS PAIN IN HIS LEFT LEG THAT IS CHRONIC, DENIES NEED FOR MEDICATION AT THIS TIME. ASSISTING WITH BREAKFAST. REPORTS PT COUGHING ONLY ONE TIME DURING BREAKFAST. NO MOIST COUGH NOTED. HEELS ARE BOGGY AND ELEVATED OFF BED. NO NEW CONCERNS AT THIS TIME. WILL CONTINUE WITH CURRENT CARE.
--- NOTE | 2018-10-03 15:02 | NUR ---
PT DOING WELL THIS SHIFT. NO S/S OF ASPIRATION. AT BEDSIDE AND FEEDS PT. CONTINUING TO TURN PT EVERY 2 HOURS. SKIN REMAINS INTACT ON COCCYX AND SURROUNDING AREA. NO NEW CONCERNS AT THIS TIME. WILL CONTINUE WITH CURRENT CARE.
[2018-10-03 15:12] VITALS: BP 95/67
--- NOTE | 2018-10-03 15:16 | NUR ---
ODALIS reviewed chart and spoke with nursing and attending physician. Pt is progressing towards goals for discharge. Pt's family do not wish to have a peg tube placed at this time. Pt will d/c home with services. Discharge home is anticipated for tomorrow. ODALIS met with pt and spouse at bedside to discuss discharge plan. Pt's spouse is agreeable and has concerns about getting pt home. ODALIS offered to arrange w/c van transportation home. ODALIS discussed with Director of Case Mgmt and obtained approval to arrange w/c van transportation home via [employer] tomorrow. ODALIS spoke with Camille in intake at [facility] to notify of pt's anticipated discharge home tomorrow. Camille requests that a face sheet, H&P and discharge orders/summary all be faxed tomorrow when available. Contact info for [facility] placed in pt's discharge summary. Nursing will need to call [employer] to arrange w/c van transportation home. Pt's will ride with pt. ODALIS is available to assist should needs arise. [facility]-- [employer]--
[2018-10-03 16:21] VITALS: BP 101/67
--- NOTE | 2018-10-03 16:21 | NUR ---
PT REFUSES TO BE TURNED AT THIS TIME. STATES HE IS COMFORTABLE IS. EDUCATED PT ON THE IMPORTANCE OF TURNING EVERY 2 HOURS. PT IS ON PRESSURE RELIEF PILLOW. PT AGREED TO BE TURNED IN AN HOUR.
[2018-10-03 19:20] VITALS: BP 94/58
[2018-10-04 04:00] VITALS: BP 108/69
[2018-10-04 05:59] LABS: ABSOLUTE RETIC COUNT 0.0394 10^6/uL; OBSERVED RETIC COUNT 1.31 % (0.6-2.6)
--- NOTE | 2018-10-04 06:06 | NUR ---
ASSUMED CARE OF PT AT 1900. AWAKE AND ALERT MOST OF SHIFT. ABLE TO SLEEP FOR A FEW HOURS. VS STABLE. TURNED ALLOWED. PT'S REQUESTED DINNER BE HEATED UP AT 0600. PROVIDED. FEEDING PT. SUCTIONS INDEPENDENTLY, SMALL AMOUNT OF THICK MUCOUS. PROGRESSING WELL TOWARDS POC GOALS.
[2018-10-04 06:15] LABS: % SATURATION 20 % (20-39); IRON 43 ug/dL (65-175); TIBC 211 ug/dL (250-450)
[2018-10-04 08:00] VITALS: BP 113/67
[2018-10-04 08:46] VITALS: BP 113/67
--- NOTE | 2018-10-04 13:14 | NUR ---
ALERT. RESPONSIVE BUT SPEECH IS DIFFICULT TO UNDERSTAND. AT BEDSIDE. DR. ARCHULETA HERE, ORDERS EGD FOR TOMORROW. HGB 7.2 BUT STABLE; WILL MONITOR Q6H. MANY VISITORS. PROTONIX DRIP STARTED ORDERED. FREQUENT CHECKS, WILL CONTINUE TO MONITOR.
[2018-10-04 15:49] LABS: HEMATOCRIT 21.9 % (42.0-52.0); HEMOGLOBIN 7.3 gm/dL (14.0-18.0)
[2018-10-04 15:58] VITALS: BP 97/60
[2018-10-04 19:17] VITALS: BP 91/53
[2018-10-04 21:27] LABS: HEMATOCRIT 20.6 % (42.0-52.0)
[2018-10-04 21:29] LABS: HEMOGLOBIN 6.6 gm/dL (14.0-18.0)
[2018-10-04 22:03] VITALS: BP 107/57
[2018-10-05 00:39] VITALS: BP 106/69; BP 94/57
[2018-10-05 05:15] VITALS: BP 106/69
[2018-10-05 05:35] VITALS: BP 106/63; BP 116/76
--- NOTE | 2018-10-05 05:43 | NUR ---
ORDER RECEIVED FROM DR. MCCARTHY () TO GIVE PT TWO UNITS PRBC. NOTED PT AXILLARY TEMP 95.0 DEGREES. UNABLE TO OBTAIN ORAL TEMP, PT IS A MOUTH BREATHER WHEN ASLEEP AND WHEN AWAKE. AFTER 15 MINUTES PT AXILLARY TEMP 94.5 DEGREES. POST TRANSFUSION, UNABLE TO OBTAIN AN ORAL OR AXILLARY TEMP. PT DOES AWAKEN, ACCURATELY STATES HIS NAME. STATES "YEA" WHEN ASKED IF HE IS FEELING GOOD THIS MORING. DID PERFORM RECTAL TEMP WHICH WAS 94.0 DEGREES. DID OBTAIN AND START THE BEAR HUGGER. DID SPEAK WITH ACADEMIC INTERN, DISCUSSED SITUATION. ACADEMIC INTERN DID NOT DISAGREE WITH STARTING THE NEXT UNIT OF BLOOD AND AGREED WITH STARTING THE BEAR HUGGER. VS STEADY, HR 57, BP 106/69, SPO2 98% ON ROOM AIR. DID ALSO PAGE GI SERVICE.
[2018-10-05 08:00] VITALS: BP 119/69
--- NOTE | 2018-10-05 09:31 | HC ---
[facility] [place] [address] CONSULTATION Name: MACARENAMARGARITO Room #: 355-[facility] IN M.R.#: [id number] Admission: 09/26/18 Attend Phys: Nish Clark MD Discharge: Date of : 31 Report #: [id number] THIS REPORT FOR: //name// CC: Nish Cruz HISTORY OF PRESENT ILLNESS: The patient is a very pleasant 88-year-old -Maur[place] male who I have been asked to see for further evaluation of anemia and heme positive stools. He was admitted for aspiration pneumonia and has had recovery from a pulmonary standpoint; however, has had progressive drop in his hemoglobin and had melenic stools yesterday with evidence of iron deficiency as well. He apparently had an ulcer, which was discovered last summer at an outside facility. He was Hemoccult positive too. His hemoglobin on admission was 10.7, down to 7.2. PAST MEDICAL HISTORY: His medical history is well detailed in the chart, but includes mild dementia. He has had spinal cord injury, hernia repair, prostate surgery, fall history, some rectal bleeding in the past, history of peptic ulcer disease, details of which are not available. REVIEW OF SYSTEMS: He is unable to give a review of systems. MEDICATIONS: On presentation, Atrovent, vitamin C, Tylenol, Remeron, hydrochlorothiazide, Carafate, Flomax, Imodium, omeprazole, donepezil, Zofran. FAMILY HISTORY: Noncontributory. SOCIAL HISTORY: Denies significant alcohol or tobacco consumption. PHYSICAL EXAMINATION: VITAL SIGNS: Afebrile, vital signs stable. Heart rate 69. HEENT: Nonicteric. NECK: No JVD, thyromegaly or bruits. CARDIOVASCULAR: Regular. LUNGS: Clear. ABDOMEN: Soft, nondistended, nontender, normoactive bowel sounds. No hepatosplenomegaly. No stigmata of chronic liver disease. No abnormal masses or bruits. EXTREMITIES: No clubbing, cyanosis or edema. NEUROLOGIC: Not performed. RECTAL: Deferred. PERTINENT LABORATORY DATA: Includes hemoglobin 7.2, MCV 74.1, RDW 21.4, platelet count 101. Chemistry notable for BUN 30, creatinine 1.0, calcium 10.2. Iron sat 20. X-RAY: CT abdomen and pelvis was reviewed. Chest x-ray reveals mild right [facility] [address] [place] [address] CONSULTATION Name: MACARENAMARGARITO Room #: 355-[facility] IN M.R.#: [id number] Admission: 09/26/18 Attend Phys: Nish Clark MD Discharge: Date of : 31 Report #: [id number] lower lung pneumonia, atelectasis without new focal pulmonary abnormalities. ASSESSMENT AND PLAN: The patient most likely has peptic ulcer disease. He has eaten today and he is hemodynamically stable. We will treat with IV proton pump inhibitor therapy and proceed with upper endoscopy tomorrow. We will also obtain serial hemoglobins over the next 24 hours. See orders for upper endoscopy. Thanks for allowing us to participate in his care. <ELECTRONICALLY SIGNED> By: Josué Saldaña MD 10/05/18 0931 [id number] [id number] Josué Saldaña MD /nt
--- NOTE | 2018-10-05 09:41 | NUR ---
PT MAKING SLOW PROGRESS TOWARDS GOALS. NO COUGHING OR CHOKING NOTED WITH TAKING CRUSHED MEDS IN PUDDING OR APPLESAUCE. PT DOES HAVE WET SOUNDING COUGH AND DOES FREQUENTLY PERFORM ORAL SUCTIONING HIMSELF. NOTED HGB LEVEL LAST NIGHT OF 6.6. DAY RN STATED GI WANTED TO BE INFORMED. SPOKE WITH DR. CLAYTON WHOM ORDERED TWO UNITS OF PRBC TO BE GIVEN.
[2018-10-05 10:07] LABS: HEMATOCRIT 26.8 % (42.0-52.0); MCH 26.1 pg (26.0-34.0); PLATELET COUNT 129 thou/uL (150-400); RBC 3.39 mil/uL (4.50-6.00); RDW 21.3 % (10.5-14.5); WBC 2.6 thou/uL (4.0-11.0)
[2018-10-05 10:08] LABS: HEMOGLOBIN 8.8 gm/dL (14.0-18.0)
[2018-10-05 11:03] LABS: ABSOLUTE NEUTROPHILS 1.7 thou/uL (1.4-8.2); ANISOCYTOSIS 1+
[2018-10-05 11:04] LABS: BURR CELLS OCCASIONAL
[2018-10-05 15:38] VITALS: BP 113/77
--- NOTE | 2018-10-05 18:38 | NUR ---
HAD AN EGD THAT SHOWED HE HAD PEPTIC ULCER. SURGERY CONSULTED AND AWAITING PLAN. PATIENT WAS ON 2L NS FOR A COUPLE OF HOURS POST PROCEDURE BUT WAS WEANED OFF SUCCESSFULLY. HE IS NOW ON ROOM AIR. TURNED Q2. GOOD URINE OUTPUT. REMAINS NPO EXCEPT MEDICATIONS. CONT ON PROTONIX DRIP. WILL CONT WITH PLNA OF CARE.
[2018-10-05 19:20] VITALS: BP 126/68
[2018-10-06 03:19] VITALS: BP 131/69
[2018-10-06 05:30] LABS: BASOPHILS 0.1 % (0.0-2.0); EOSINOPHILS 0.5 % (0.0-3.0); HEMATOCRIT 26.8 % (42.0-52.0); HEMOGLOBIN 8.7 gm/dL (14.0-18.0); LYMPHOCYTES 4.9 % (24.0-44.0); MCH 25.2 pg (26.0-34.0); MCHC 32.4 g/dL (28.0-37.0); MCV 77.9 fL (80.0-100.0); MONOCYTES 2.9 % (1.0-8.0); PLATELET COUNT 165 thou/uL (150-400); POLYS 91.6 % (36.0-66.0); RBC 3.44 mil/uL (4.50-6.00); RDW 21.5 % (10.5-14.5)
[2018-10-06 05:37] LABS: WBC 9.9 thou/uL (4.0-11.0)
--- NOTE | 2018-10-06 06:46 | NUR ---
ASSUMED CARE OF PT AT 1900. AWAKE, TRIES TO COMMUNICAT BUT IS DIFFICULT TO UNDERSTAND D/T SLURRED SPEECH. BREATHING DID SOUND MORE WHEEZY THAN PREVIOUS NOC'S. VS CHECKED, O2 SAT WAS 98%, PT REPOSITIONED AND WAS BREATHING A LITTLE EASIER. TURNED Q 2. NO BMs. PROGRESSING TOWARDS POC GOALS.
[2018-10-06 08:02] VITALS: BP 119/71
--- NOTE | 2018-10-06 10:24 | NUR ---
ASSUMED CARE OF PT AT 0700. ASSESSMENT COMPLETED. HX LEFT SIDED WEAKNESS, SLURRED SPEECH. AWAKE, ORIENTED TO SELF, FOLLOWS COMMANDS. ROOM AIR, LUNG SOUNDS COARSE/DIM WITH RHONCHI. NO TARRY STOOLS NOTED. SCD'S IN PLACE. AT BESIDE. ADVANCED DIET. WILL CONTINUE TO MONITOR.
--- NOTE | 2018-10-06 14:13 | NUR ---
on-going assessment: cm reviewed chart and met with patient and his at the bedside. pt is sitting up in his chair. cm discussed if patient continues to do well then per attending he is possible discharge home with hh tomorrow. CM NOTIFIED [facility] TO UPDATE. CM ALSO NOTIFIED WHO STATES THEY WILL JUST NEED ASSISTANCE WITH TRANSPORTATION. CM WILL FOLLOW UP TOMORROW.
[2018-10-06 16:13] VITALS: BP 94/59
--- NOTE | 2018-10-06 19:37 | NUR ---
END OF SHIFT. ONE TARRY BLACK STOOL NOTED. PT GOT UP TO THE CHAIR WITH P/T TODAY. MAX X2 ASSIST. TOLERATING PUREED DIET AND NECKTAR THICK LIQUIDS. NO OTHER CHANGE IN STATUS.
[2018-10-06 20:05] VITALS: BP 112/64
[2018-10-07 04:50] VITALS: BP 135/87
[2018-10-07 06:15] LABS: ABSOLUTE NEUTROPHILS 3.6 thou/uL (1.4-8.2); BASOPHILS 0.2 % (0.0-2.0); HEMOGLOBIN 8.2 gm/dL (14.0-18.0); LYMPHOCYTES 14.2 % (24.0-44.0); MCH 25.9 pg (26.0-34.0); MCHC 32.8 g/dL (28.0-37.0); MCV 79.2 fL (80.0-100.0); MONOCYTES 6.7 % (1.0-8.0); PLATELET COUNT 192 thou/uL (150-400); POLYS 77.9 % (36.0-66.0); RBC 3.16 mil/uL (4.50-6.00); RDW 21.8 % (10.5-14.5); WBC 4.6 thou/uL (4.0-11.0)
[2018-10-07 07:18] LABS: ANISOCYTOSIS 2+
[2018-10-07 07:50] VITALS: BP 133/84
--- NOTE | 2018-10-07 15:39 | NUR ---
ON-GOING ASSESSMENT: CM REVIEWED CHART AND MET WITH PATIENT AT THE BEDSIDE ALONG WITH HIS . PLANS ARE FOR PATIENT TO LIKELY DISCHARGE HOME TOMORROW WITH HH THEY WANT TO MONITOR HIS HEMOGLOBIN HERE ONE MORE NIGHT. CM DISCUSSED WITH . REPORTS THEY HAVE A BEDSIDE COMMODE AT HOME BUT SHE IS REQUESTING TO GET SUCTION AND SUPPLIES AT HOME. CM REACHED OUT TO [employer] WHO STATES THEY ARE OUT OF NETWORK WITH HIS INSURANCE. CM REACHED OUT TO [facility]OD WHO STATES IF PATIENT HAS ASPIRATION PNEUMONIA THEN IT WILL LIKELY BE COVERED BY INSURANCE. CM FAXED FACESHEET/CLINICAL/RX FOR SUCTION AND SUPPLIES TO STEFFANIE. VIOLA AT [facility] STATING THAT IT CAN BE DELIVERED TO PATIENTS HOME TOMORROW. CM NOTIFIED PATIENTS MOTHER. CM WILL CONTINUE TO FOLLOW TO ASSIST NEEDED.
[2018-10-07 16:35] VITALS: BP 129/76
--- NOTE | 2018-10-07 18:44 | NUR ---
ASSUMED PT CARE AT 0700H. PT ALERT AND ORIENTED X2. PT'S AT BEDSIDE. PT HAS NO S/S OF DISTRESS. PT TOLERATES MEDS AND MEALS. PT HAD THERAPY AND SAT ON INCLINER. PT HAS WEAKNESS ON LEFT SIDE. PT CONTINUES TO USE YANKAUER. PT ON PUREE AND NECTAR THICK DIET. PT CONTINUES TO BE ON Q2H TURNS FOR SAFETY.
[2018-10-07 19:23] VITALS: BP 131/72
--- NOTE | 2018-10-08 04:53 | NUR ---
able to swallow pill crushed in applesauce. staff assisted feeding him supper. turn q2hrs. denies pain. lives at home, possible dc home Saturday. urinating well via condom catheter. continues on Protonix drip for treatment of duodenal ulcer.
[2018-10-08 05:01] VITALS: BP 122/69
[2018-10-08 05:25] LABS: HEMATOCRIT 24.4 % (42.0-52.0); HEMOGLOBIN 8.1 gm/dL (14.0-18.0); MCH 26.1 pg (26.0-34.0); MCHC 33.3 g/dL (28.0-37.0); MCV 78.5 fL (80.0-100.0); RBC 3.11 mil/uL (4.50-6.00); RDW 21.3 % (10.5-14.5); WBC 4.5 thou/uL (4.0-11.0)
[2018-10-08 07:33] VITALS: BP 122/63
[2018-10-08 10:33] VITALS: BP 95/67
--- NOTE | 2018-10-08 10:37 | NUR ---
PT A&OX3-4, NON AMB. AT THIS TIME D/T L SIDE WEAKNESS, REQUIRES ASSIST TO EAT. SPOUSE AT BEDSIDE. IV INTACT IN L FA. IV FLUIDS DISCONTINUED PER ., PLANS ARE TO DC HOME TODAY.
--- NOTE | 2018-10-08 13:21 | NUR ---
ON-GOING ASSESSMENT: CM REVIEWED CHART AND MET WITH PATIENT AND HIS AT THE BEDSIDE. CM DISCUSSED WITH ATTENDING WELL BEDSIDE RN AND GI WANTS TO MONITOR PATIENTS HEMOGLOBIN OVERNIGHT WITH POSSIBLE DISCHARGE WITH HH TOMORROW AM. ERWIN SPOKE WITH STEFFANIE AND REP CAME OUT TO DISCUSS WITH WELL GOING TO DELIVER SUCTION FOR HOME. CM FAXED RX TO [facility] AND COPY IS ON PATIENTS CHART. ALSO ASKED ABOUT DPOA. CM SPOKE WITH ATTENDING WHO FEELS PATIENT IS COMPETENT ENOUGH TO SIGN DPOA PAPERWORK. CM PROVIDED PATIENT AND HIS WITH DPOA PAPERWORK AND DISCUSSED AND NOTIFIED THEM TO NOTIFY RN IF THEY COMPLETE IT AND ASK SPIRITUAL CARE TO NOTARIZE IT. CM WILL CONTINUE TO FOLLOW TO ASSIST NEEDED.
--- NOTE | 2018-10-08 13:56 | NUR ---
This RN has reviewed and agrees with the charting and assessments by student nurse Rosemarie Meredith.
[2018-10-08 15:40] VITALS: BP 120/61
[2018-10-08 20:02] VITALS: BP 142/81
[2018-10-09 05:09] LABS: HEMATOCRIT 24.9 % (42.0-52.0); HEMOGLOBIN 8.1 gm/dL (14.0-18.0); MCH 25.7 pg (26.0-34.0); MCHC 32.6 g/dL (28.0-37.0); MCV 79.1 fL (80.0-100.0); RBC 3.15 mil/uL (4.50-6.00); RDW 21.9 % (10.5-14.5); WBC 3.7 thou/uL (4.0-11.0)
[2018-10-09 05:29] VITALS: BP 139/84
--- NOTE | 2018-10-09 06:44 | NUR ---
PT MAKING SLOW PROGRESS TOWARDS GOALS. PT CONTINUES TO OCCASIONALLY USE ORAL SUCTING DEVICE. MEDS CRUSHED POSSIBLE AND PLACED IN EITHER YOUGURT, PUDDING OR APPLESAUCE. DOES APPEAR TO SWALLOW WITHOUT COUGHING OR CHOKING.
[2018-10-09 07:15] VITALS: BP 132/90
[2018-10-09] MEDS ORDERED: COLACE 100 MG100 MG PO (08:13)
[2018-10-09] MEDS ORDERED: PANTOPRAZOLE SO40 M1 PO (08:13)
--- NOTE | 2018-10-09 13:26 | NUR ---
ASSUMED PATIENT CARE AT 0715. A&OX2. SPOUSE AT BEDSIDE. PATIENT DISCHARGING HOME TODAY WITH HOME HEALTH. SPOUSE IS UNABLE TO TRANSFER PATIENT. NOT SURE HOW THEY WILL CARE FOR PATIENT 18/03. SPOUSE REQUESTED A HOSPITAL BED. CM IS ATTEMPTING TO OBTAIN ONE FOR THEM BUT MOST LIKELY WILL BE UNABLE TO. SPOUSE ALSO REQUESTING CONDOM CATH TO BE LEFT ON. SPOUSE REFUSED HOSPICE SERVICES MULTIPLE TIMES. CM SETTING UP TRANSPORT VIA AMBULANCE.
--- NOTE | 2018-10-09 13:44 | NUR ---
ON-GOING ASSESSMENT: PATIENT HAS ORDERS TO DISCHARGE HOME TODAY WITH . PT WAS IN SERVICES WITH [facility] PRIOR TO ADMISSION AND IS GOING TO GO BACK HOME WITH [facility]. CM CONTACTED [facility] AND SPOKE WITH ANA AND NOTIFIED OF DISCHARGE TODAY. CM MET WITH PATIENTS AT THE BEDSIDE. REPORTS THEY HAVE A BEDSIDE COMMODE AT HOME/ BED SANCHEZ/ WHEELCHAIR/ GAIT BELT. REPORTS SHE IS COMFORTABLE TAKING PATIENT HOME AND CARING FOR HIM. (INSURANCE DENIED SNF). REPORTS THAT THEIR PCP IS WORKING ON GETTING PATIENT A HOSPITAL BED FOR HOME. CM ENCOURAGED TO FOLLOW UP WITH PCP WHERE THEY ARE IN THAT PROCESS. REQUEST HELP TRANSPORTING PATIENT HOME. PT IS ABLE TO SIT/STAND BUT IS MAX ASSIST. CM NOTIFIED [facility] [employer] TO HELP ARRANGE AMBULANCE TO GET PATIENT HOME. REPORTS ONCE PATIENT IS HOME SHE DOES NOT ATTEMPT TO MOVE HIM HERSELF UNLESS HER DAUGHTER OR OTHER FAMILY IS THERE TO ASSIST HER. CM VERIFIED WITH PATIENTS WELL LIAJOAQUIM VIOLA AT [facility] AND ALREADY HAS THE SUCTION AND SUPPLIES AT HOME FOR PATIENT. AND PT REPORTS NO FURTHER NEEDS FROM CM AT THIS TIME.
--- NOTE | 2018-10-09 14:22 | NUR ---
DISCHARGE ORDERS RECEIVED. PATIENT DISCHARGING TO HOME WITH [facility]. FD TO TRANSPORT PATIENT TO HOME, 1700 HOURS. [facility] NOTIFIED THAT WOULD LIKE TO RIDE ALONG WITH PATIENT TO HOME. DISPATCH PUT REQUEST IN FOR TO RIDE ALONG. IF FOR ANY REASON [facility] DECLINES REQUEST PLEASE SET UP CAB RIDE HOME FOR . [place] [place] CAB VOUCHER PROVIDED AND LEFT WITH PTS RN BACK UP TRANSPORTATION FOR . UNIT RN AWARE. DISCHARGE/HOME HEALTH ORDERS AND DISCHARGE SUMMARY FAXED TO [facility]. VERIFIED RECEIVED WITH ANA AND WILL FACILITATE PATIENTS HH NEEDS. UNIT CM/SW AWARE.
[2018-10-09 19:30] VITALS: BP 153/79
--- NOTE | 2018-10-10 10:10 | O ---
[facility] [place] [address] OPERATIVE REPORT Name: FIOREMARGARITO Room #: 355-P [facility] IN M.R.#: [id number] Admission: 09/26/18 Attend Phys: Nish Clark MD Discharge: 10/09/18 Date of : 31 Report #: [id number] THIS REPORT FOR: //name// CC: Nish Cruz DATE OF SERVICE: 10/05/2018 SURGEON: Josué Saldaña MD PREOPERATIVE DIAGNOSIS: Upper gastrointestinal bleed. POSTOPERATIVE DIAGNOSIS: See below. ANESTHESIA USED: See anesthesia notes. PROCEDURE PERFORMED: Esophagogastroduodenoscopy with epinephrine injection. INDICATION FOR PROCEDURE: As above. FINDINGS: Large deep high risk duodenal ulcer with adherent clot. DESCRIPTION OF PROCEDURE: The risks and benefits of the procedure were explained in detail prior to monitored anesthesia. The patient was placed in left lateral decubitus position and the tip of the AutoNaviinon and the Olympus video endoscope was advanced into the oropharynx, esophagus, stomach, into the second portion of the duodenum. There was a large duodenal ulcer on the anterior aspect of the junction of the duodenal bulb and the second portion of the duodenum. This ulcer had a large base, which was fully occupied by adherent clot, which did not irrigate easily. I am uncertain as to the extent of the depth of the ulcer and I was unable to clear the clot safely. Random injection of epinephrine was utilized to help reduce the risk of rebleed. There was no active visible hemorrhage; however, there was evidence of recent hemorrhage with fresh clot adherent to what was suspected to be the base of the ulcer. The duodenal bulb was otherwise normal. The pylorus was patent. Retroflexion allowed close inspection of the cardia and the fundus, which revealed a large hiatal hernia. The GE junction was approximately 35 cm from the incisors and normal. The rest of esophagus was normal as well. IMPRESSION: Large high risk duodenal ulcer as described. PLAN: 1. Surgical consult. 2. Interventional Radiology consult. [address] [address] [facility]: [facility]P [facility] IN .R.#: [id number] Admission: 09/26/18 Attend Phys: Nish Clark MD Discharge: 10/09/18 Date of : 31 Report #: [id number] 3. No role for repeat upper endoscopy for management of bleeding in this high risk ulcer. <ELECTRONICALLY SIGNED> By: Tyrese Jim MD 10/10/18 1010 1147 Josué Saldaña MD /nt
== END 2018-10-09 20:30 | disposition home health service (06) | DRG 177 ==
LOC: ER 13:28 → EROBS 15:20 → 3W 15:20
PROVIDERS: Emergency Medicine; Internal Medicine; Internal Medicine Gastroenterology; Nurse Practitioner Family; ADMIT Hospitalist
PROC: 3E0G8GC Introduction of Other Therapeutic Substance into Upper GI, Via Natural or Artificial Opening Endoscopic (ICD-10-PCS; principal; 2018-10-05)
PROC: 30233N1 Transfusion of Nonautologous Red Blood Cells into Peripheral Vein, Percutaneous Approach (ICD-10-PCS; principal; 2018-10-05)
DX: J69.0 Pneumonitis due to inhalation of food and vomit (principal); N17.0 Acute kidney failure with tubular necrosis; K26.4 Chronic or unspecified duodenal ulcer with hemorrhage; G93.40 Encephalopathy, unspecified; E87.0 Hyperosmolality and hypernatremia; D62 Acute posthemorrhagic anemia; E87.5 Hyperkalemia; E83.42 Hypomagnesemia; N40.0 Benign prostatic hyperplasia without lower urinary tract symptoms; K59.00 Constipation, unspecified; R13.10 Dysphagia, unspecified; D63.8 Anemia in other chronic diseases classified elsewhere; N18.9 Chronic kidney disease, unspecified; M62.84 Sarcopenia; K21.9 Gastro-esophageal reflux disease without esophagitis; Z66 Do not resuscitate; E86.0 Dehydration; Z79.899 Other long term (current) drug therapy
CPT/HCPCS: 10779; 10879; 62110; 62900

== ENCOUNTER 2018-11-03 01:44 | Inpatient (IN) | payer MEDICARE ==
[~2018-11-03] VITALS: Ht 170.2 cm; Wt 64.9 kg
[~2018-11-03 01:44] MED LIST changes: +APAP650 PO; +COLACE 100 MG100 MG PO; +HYDROCHLOROTHIA25 M2 PO; +IPRAT-ALBUT 0.5-3 ML INH; +PANTOPRAZOLE SO40 M1 PO; +REMERON15 MG PO; +VITAMINC500 PO
[2018-11-03 02:10] LABS: ANION GAP 7 mmol/L (7-16); BUN 49 mg/dL (7-18); CALCIUM 10.7 mg/dL (8.5-10.1); CHLORIDE 103 mmol/L (98-107); CO2 30 mmol/L (21-32); CREATININE 3.6 mg/dL (0.7-1.3); GLUCOSE 105 mg/dL (74-106); POTASSIUM 5.2 mmol/L (3.5-5.1); SODIUM 140 mmol/L (136-145)
[2018-11-03 02:18] LABS: ALBUMIN 2.9 g/dL (3.4-5.0); LIPASE 235 U/L (73-393); SGOT 19 U/L (15-37); SGPT 16 U/L (30-65); TOTAL BILIRUBIN 0.3 mg/dL (<0.1-1.0); TOTAL PROTEIN 7.8 g/dL (6.4-8.2); TROPONIN-I <0.06 ng/mL (<0.06)
[2018-11-03 02:20] LABS: BASOPHILS 0.2 % (0.0-2.0); HEMOGLOBIN 10.4 gm/dL (14.0-18.0); PLATELET COUNT 144 thou/uL (150-400); WBC 2.6 thou/uL (4.0-11.0)
[2018-11-03 02:22] LABS: ABSOLUTE NEUTROPHILS 1.7 thou/uL (1.4-8.2); EOSINOPHILS 0.7 % (0.0-3.0); HEMATOCRIT 32.3 % (42.0-52.0); LYMPHOCYTES 24.1 % (24.0-44.0); MCH 25.1 pg (26.0-34.0); MCHC 32.2 g/dL (28.0-37.0); MONOCYTES 9.2 % (1.0-8.0); POLYS 65.8 % (36.0-66.0); RBC 4.14 mil/uL (4.50-6.00); RDW 22.3 % (10.5-14.5)
[2018-11-03 02:34] LABS: URINE BILIRUBIN NEGATIVE (Negative); URINE BLOOD NEGATIVE (Negative); URINE CLARITY CLEAR; URINE COLOR YELLOW; URINE GLUCOSE-RANDOM* NEGATIVE (Negative); URINE KETONES TRACE (Negative); URINE LEUKOCYTES-REFLEX TRACE (Negative); URINE NITRITE-REFLEX NEGATIVE (Negative); URINE PROTEIN (DIPSTICK) NEGATIVE (Negative); URINE SPECIFIC GRAVITY >= 1.030 (1.005-1.035); URINE UROBILINOGEN 0.2 E.U./dl (0.2-1.0)
[2018-11-03 03:41] VITALS: BP 97/57
--- NOTE | 2018-11-03 04:00 | NUR ---
FROM HOME WITH WEAKNESS AND NAUSEA. SUCTION SET-UP PER PATIENT REQUEST, APPARENTLY USES YANKHAUER AT HOME. ROMA HAS ADVANCE DIRECTIVE THAT SHE CARRIES WITH HER; COPIED AND PLACED IN CHART.
[2018-11-03 04:11] VITALS: BP 120/72
--- NOTE | 2018-11-03 09:17 | EKG ---
[place] [address] [facility] [place] [address] ELECTROCARDIOGRAM REPORT Name: MARGARITO FIORE Room #: 452-P ADM IN M.R.#: [id number] ������������������ Admission: 11/03/18 ������������������ Attend Phys: Дмитрий Azar MD Discharge: ������������������ Date of : 31 Report #: [id number] ����������������������������������������������������������������� [id number] THIS REPORT FOR: //name// [facility] ED Test Date: 2018-11-03 Test Time: 02:13:08 Pat Name: MARGARITO FIORE Department: Room: 452 Gender: M Molder Closed Molds: : 1930 Requested By: Silvino Gutiérrez Order Number: [id number] MD: Gm Yadav Measurements Intervals [place] Rate: 75 P: -66 [place]: 262 QRS: -16 QRSD: 107 T: 21 QT: 394 QTc: 441 Interpretive Statements Sinus rhythm Paired ventricular premature complexes Abnormal R-wave progression, early transition Compared to ECG 09/26/2018 14:30:42 Ventricular premature complex(es) now present Electronically Signed On 11-03-2018 9:16:54 CDT by Gm Yadav [email or web address] ��������������������������������������������� <ELECTRONICALLY SIGNED> ���������������������������������������� By: Gm Yadav MD, [facility] ��������������������������������������������� 11/03/18 0916 2 2 Gm Yadav MD, [facility] /EPI
[2018-11-03 09:23] VITALS: BP 115/86
[2018-11-03 15:26] VITALS: BP 96/60
--- NOTE | 2018-11-03 15:45 | NUR ---
dp sent referral to [facility] ([facility]) patient was on service with them prior to this hospitalization.
--- NOTE | 2018-11-04 02:43 | NUR ---
ASSUMED CARE AT 1900. AXOX2. ASLEEP. GONZALEZ INTACT AND DRAINING WITHOUT DIFFICUTIES. ABD SOFT ASYMMRICAL, ACTIVIE BOWEL SOUNDS. ORAL SUCTION SET UP AT BEDSIDE PER PT ABLE TO USE SAFELY TO DRAIN SECRETION. AT BEDSIDE AT ALL TIMES. TELE SHOWS SR WITH 1D AVB. DENIES PAIN/SOA/SOB/CHEST PAIN. NO S/S ACUTE DISTRESS NOTED OR REPORTED AT THIS TIME. WILL CONT TO MONITOR FOR ANY CHANGES IN CONDITION.
[2018-11-04 05:14] VITALS: BP 118/77
[2018-11-04 06:20] LABS: HEMATOCRIT 28.6 % (42.0-52.0); HEMOGLOBIN 9.1 gm/dL (14.0-18.0); MCHC 31.9 g/dL (28.0-37.0); MCV 78.4 fL (80.0-100.0); RBC 3.65 mil/uL (4.50-6.00); RDW 22.2 % (10.5-14.5); WBC 2.1 thou/uL (4.0-11.0)
[2018-11-04 06:37] LABS: ALBUMIN 2.5 g/dL (3.4-5.0); CALCIUM 9.8 mg/dL (8.5-10.1); CREATININE 3.2 mg/dL (0.7-1.3); PHOSPHORUS 3.9 mg/dL (2.5-4.9)
[2018-11-04 07:54] VITALS: BP 102/70
--- NOTE | 2018-11-04 14:58 | NUR ---
PT ADMITTED RELATED TO WEAKNESS. CM REVIEWED CHART AND SPOKE WITH CARE TEAM. CM MET WITH PT AND SPOUSE AT BEDSIDE THIS DAY. PT DIRECTED CM TO SPEAK TO FOR ASSESSMENT. SPOUSE INDICATED THEY LIVE IN A HOUSE WITH 1 STEP TO ENTER AND 1 STEPS INSIDE. SHE INDICATED THAT THEY HAVE A WC, WALKER, BCS FOR USE AT HOME. PT'S INDICATED THAT SHE ASSISTED WITH [employer]SF[employer]. PT HAD BEEN ON SERVICE WITH [facility] [facility] THEY WOULD LIKE TO USE THEM AGAIN UPON DC. INDICATED THEY ANTICPATE PT RETURN HOME ONCE MEDICALLY STABLE. REFERRAL SENT TO [facility]. CM TO FOLLOW INDICATED WITH DC PLANNING.
[2018-11-04 15:59] VITALS: BP 101/66
--- NOTE | 2018-11-04 18:04 | NUR ---
PT STABLE THROUGHOUT SHIFT. NG TUBE PLACED AND 1500 MLS EMPTIED. PT TOLERATED PLACEMENT WELL. PT RESTING, FAMILY AT BEDSIDE.
[2018-11-04 19:20] VITALS: BP 95/57
--- NOTE | 2018-11-05 04:09 | NUR ---
Assumed care at 1845. Pt resting in bed. Emptied 700ml from NG tube. VSS. Turned pt Q2. Pt is still NPO. is at bedside. No identified needs at the moment. Will continue to monitor.
[2018-11-05 05:57] LABS: HEMATOCRIT 25.5 % (42.0-52.0); HEMOGLOBIN 8.1 gm/dL (14.0-18.0); MCH 24.9 pg (26.0-34.0); MCHC 31.7 g/dL (28.0-37.0); MCV 78.7 fL (80.0-100.0); RBC 3.24 mil/uL (4.50-6.00); RDW 21.9 % (10.5-14.5)
[2018-11-05 06:13] LABS: ALBUMIN 2.2 g/dL (3.4-5.0); CALCIUM 9.6 mg/dL (8.5-10.1); CREATININE 2.9 mg/dL (0.7-1.3); PHOSPHORUS 3.1 mg/dL (2.5-4.9); POTASSIUM 3.8 mmol/L (3.5-5.1)
[2018-11-05 07:23] VITALS: BP 106/81
[2018-11-05 14:03] VITALS: BP 93/58
--- NOTE | 2018-11-05 15:49 | NUR ---
OUTPUT NG/SUCTION: 1200 DARK GREEN W/SEDIMENT AND MUCUS AT THIS TIME SUCTION HAS SEVERAL DAYS WORTH AT 750ML LOCO/CLOUDY
--- NOTE | 2018-11-05 15:50 | NUR ---
PT DECLINES NEED FOR PAIN MEDICATION EACH TIME ASKED, TURNING FREQUENTLY AND MOUTH SWABBING WELL SUCTIONING AND MONITORING NG OUTPUT
--- NOTE | 2018-11-05 16:55 | NUR ---
PT CONTINUES WITH NG TUBE. PHYSICIAN TO REACH OUT TO DTR AND SPOUSE TO DISCUSS CARE GOALS. CM TO FOLLOW INDICATED WIHT DC PLANNING.
--- NOTE | 2018-11-05 17:49 | NUR ---
PHYSICIAN COMM RE: MORPHINIE SULFATE FOR PT'S RESPIRATIONS INCREASED, INFREQ PVCS
--- NOTE | 2018-11-05 18:12 | NUR ---
DR. LUCAS SPEAKING W/PT'S SPOUSE RE: FULL CODE VERSUS DNR AND WHAT THIS INVOLVES. WILL ENTER ORDERS
[2018-11-05 19:24] VITALS: BP 105/62
[2018-11-06 03:19] VITALS: BP 110/68
--- NOTE | 2018-11-06 03:50 | NUR ---
SLEPT PART OF SHIFT. AT BEDSIDE AND STATES HE PULLS AT TUBES SOMETIMES. REPOSITIONED EVERY 2-3 HOURS FOR COMFORT AND SKIN CARE. WORKING ON GOALS AND PLAN OF CARE FOR NOC. PATIENT COMFORT CARE AT THIS TIME. NOT PROGRESSING TOWARDS DISCHARG GOALS. DOES ANSWER YES AND NO TO SIMPLE QUESTIONS AND IF IS IN PAIN. CONTINUE TO ASSES.
[2018-11-06 08:10] VITALS: BP 103/44
[2018-11-06 14:19] VITALS: BP 89/44
--- NOTE | 2018-11-06 15:54 | NUR ---
PT ASSESSED THIS AM. RESP AT 28 BUT NONLABORED. REPOSITIONE IN BED AND STATES IS COMFORTABLE. NG W/ DK BILIOUS DRAINAGE BUT LIGHTENED UP AFTER IRRIGATED COUPLE OF TIMES. PT DENIES PAIN/DICOMFORT. IV IRON GIVEN. KEEPING OLIVARES AT BEDSIDE. PT TURNED Q2HRS.
[2018-11-06 19:00] VITALS: BP 102/67
[2018-11-06 23:51] VITALS: BP 207/108
--- NOTE | 2018-11-07 02:39 | NUR ---
SLEPT MOST OF SHIFT WITH AT BEDSIDE. MORE ALERT THIS SHIFT, DENIES COMPLAINTS OF PAIN OR SHORTNESS OF AIR. REPOSITIONED EVERY 2-3 HOURS FOR COMFORT AND SKIN CARE. WORKING ON GOALS AND PLAN OF CARE FOR NOC. PATIENT ON COMFORT CARE. VSS. NOT PROGRESSING TOWARDS DISCHARGE GOALS. CONTINUE TO ASSES CLOESLY.
[2018-11-07 04:27] VITALS: BP 83/50
[2018-11-07 06:19] VITALS: BP 83/55
[2018-11-07 08:00] VITALS: BP 86/54
[2018-11-07 15:00] VITALS: BP 79/52
[2018-11-07 20:02] VITALS: BP 74/53
[2018-11-08 01:18] VITALS: BP 72/44
--- NOTE | 2018-11-08 03:34 | NUR ---
ASSUMED CARE FROM PREVIOUS SHIFT PT AWAKE ORIENTED, FAMILY AT BEDSIDE, NG WITH GREENISH OUTPUT NOTED PT DENIES PAIN AND REFUSE MORPHINE AT THIS TIME, PT TURNED EVERY TWO HOURS. DISCUSSED PLAN OF CARE AND AGREEABLE AFLUUTER ON GRAIN SHIPPER.
[2018-11-08 03:52] VITALS: BP 78/42
[2018-11-08 05:45] LABS: HEMATOCRIT 23.8 % (42.0-52.0); HEMOGLOBIN 7.7 gm/dL (14.0-18.0); MCH 24.7 pg (26.0-34.0); MCHC 32.2 g/dL (28.0-37.0); MCV 76.9 fL (80.0-100.0); RBC 3.1 mil/uL (4.50-6.00); RDW 21.7 % (10.5-14.5); WBC 2.6 thou/uL (4.0-11.0)
[2018-11-08 07:22] VITALS: BP 80/48
--- NOTE | 2018-11-08 12:55 | NUR ---
TOWARDS POC PT IS ON COMFORT CARE, FAMILY AT BEDSIDE, NG TUBE TO L NARE INTACT WITH GREENISH OUTPUT. PT ALERT AND NONVERBAL, SLEEPS MOST OF THE TIME. WILL CONTINUE TO MONITOR.
[2018-11-08 14:48] VITALS: BP 83/52
[2018-11-08 21:34] VITALS: BP 78/53
--- NOTE | 2018-11-09 04:00 | NUR ---
Pt. rested quietly at intervals during the night when checked on during frequent rounds. Pt. wants pt. to have the morphine instead of the fentanyl. Fentanyl ivp was given (see emar) as family voiced pt. was getting figidty with no relief. Spoke to Earlene LEMA with new orders for ivp morphine. Morphine given as ordered (see emar) with pt. resting quietl with eyes closed. He has been turned and repositioned often. Ngt tube patent. at the bedside all night.
[2018-11-09 07:14] VITALS: BP 82/53
--- NOTE | 2018-11-09 12:17 | NUR ---
COMFORT CARE PT A/O X1, SLEEPY, BUT OPENS EYES AND ANSWERS YES/NO QUESTIONS. NO SOA, DENIES PAIN. AT BEDSIDE. NG TUBE INTACT ON LOW INT. SUCTIONING WITH BILEOUS OUTPUT. WILL CONTINUE TO MONITOR
[2018-11-09 15:32] VITALS: BP 103/67
[2018-11-09 19:22] VITALS: BP 83/53
--- NOTE | 2018-11-10 03:55 | NUR ---
PATIENT IS ON COMFORT CARE. PATIENT TURNED Q 2 HOURS.PATIENT HAD AIR HUNGER AT AROUND 0000, MORPHINE IM GIVEN PER DR. ORDER. PATIENT WAS CONGESTED AND HAD DIFFICULTIES BREATHING WITH HIGH RESPIRATION, CALLED [place] AND [employer] SALESPERSON NEW ODER OF ALBTEROL Q4 HOURS PRN. PATIENT SUCTIONED AND BREATHING TREATMENT GIVEN BY RT. SPOUSE REQUESTED PATIENT TO BE ON SITTING POSITION IN BED. PATIENT FEELS BETTER AND IS ABLE TO COUGH. PATIENT IN BED ASLEEP AT THIS TIME BREATHING REGULAR AND UNLABOURED.
[2018-11-10 05:00] VITALS: BP 113/57
[2018-11-10 07:25] VITALS: BP 110/75
--- NOTE | 2018-11-10 14:52 | NUR ---
SW reviewed chart and spoke with nursing and attending physician. Pt has NG tube in place. Attending physician met with pt's and dtr to discuss plan of care. Pt's family think pt's condition will improve. Spiritual Care has been contacted to meet with pt's family. ODALIS is following to assist as needed with discharge planning.
[2018-11-10 16:20] VITALS: BP 79/48
[2018-11-10 19:24] VITALS: BP 91/56
--- NOTE | 2018-11-10 19:52 | NUR ---
Pt on comfort care, FC patent and draining yellow urine. NG on right nare, suctioned 100cc. POC followed for fluids and PPN. and daughter at bedside. RT on his case , congested cough RT giving treatments. No pain was verbalized by the pt, he is able to responde by noding his head. Kept pt comfortable.
[2018-11-11 04:44] VITALS: BP 104/53
[2018-11-11 05:18] LABS: HEMATOCRIT 21.7 % (42.0-52.0); HEMOGLOBIN 7.2 gm/dL (14.0-18.0); MCH 25.1 pg (26.0-34.0); MCHC 33.1 g/dL (28.0-37.0); MCV 75.7 fL (80.0-100.0); RBC 2.86 mil/uL (4.50-6.00); RDW 21.4 % (10.5-14.5); WBC 4.5 thou/uL (4.0-11.0)
[2018-11-11 05:32] LABS: ALBUMIN 1.8 g/dL (3.4-5.0); CALCIUM 9.3 mg/dL (8.5-10.1); CREATININE 1.3 mg/dL (0.7-1.3); MAGNESIUM 1.5 mg/dL (1.8-2.4); POTASSIUM 3.3 mmol/L (3.5-5.1); TOTAL BILIRUBIN 0.2 mg/dL (<0.1-1.0); TOTAL PROTEIN 5.7 g/dL (6.4-8.2)
--- NOTE | 2018-11-11 06:29 | NUR ---
PATIENT SLEPT MOST OF THE NIGHT. LEFT FOREARM APPERED TO BE SWOLLEN UPON ASSESSMENT THEREFORE LEFT FOREARM IV WAS DISCONTINUED. NEW IV STARTED ON RIGHT FOREARM. PATIENT REPOSITIONED EVERY 2-3 HOUR. PRN MORPHINE WAS GIVEN ONCE DURING SHIFT. PATIENT OS NOT PROGRESSING TOWARDS DISCHARGE. COMFORT CARE CONTINUED. REMAINS AT BEDSIDE AND FEELS THAT IS COMFORTABLE.
[2018-11-11 08:35] VITALS: BP 95/42
--- NOTE | 2018-11-11 12:08 | NUR ---
COMFORT CARE PT AWAKE AND ALERT AT TIME. ANSWERS YES/NO QUESTIONS. BP REMAINS LOW. NG TUBE RIGHT NARE STILL INTACT WITH MINIMAL BROWNISH OUTPUT. FAMILY AT BEDSIDE. REMAINED IN 3L O2. WILL CONTINUE TO MONITOR.
[2018-11-11 15:20] VITALS: BP 85/44
[2018-11-11 19:27] VITALS: BP 95/56
[2018-11-12 03:44] VITALS: BP 95/50
[2018-11-12 03:51] VITALS: BP 113/40
--- NOTE | 2018-11-12 06:35 | NUR ---
SLEPT MOST OF SHIFT. DENIES COMPLAINTS OF PAIN. LESS VERBAL THIS SHIFT. SLEEPING AT BEDSIDE. DENIES COMPLAINTS OF NAUSEA THIS SHIFT. WORKING ON GOALS AND PLAN OF CARE FOR NOC. MAINTAIN COMFORT CARE. NOT PROGRESSING TOWARDS DISCHARGE GOALS AT THIS TIME. REPOSTIONED EVERY 2 HOURS FOR COMFORT AND SKIN CARE. CONTINUE TO ASSES CLOESLY.
[2018-11-12 08:00] VITALS: BP 93/58
[2018-11-12 11:02] LABS: RDW 21.4 % (10.5-14.5); WBC 3.5 thou/uL (4.0-11.0)
[2018-11-12 11:04] LABS: HEMATOCRIT 20.7 % (42.0-52.0); HEMOGLOBIN 6.9 gm/dL (14.0-18.0); MCH 25.4 pg (26.0-34.0); MCHC 33.3 g/dL (28.0-37.0); MCV 76.4 fL (80.0-100.0); RBC 2.71 mil/uL (4.50-6.00)
[2018-11-12 11:13] LABS: CALCIUM 9.2 mg/dL (8.5-10.1); CREATININE 1.1 mg/dL (0.7-1.3); MAGNESIUM 1.5 mg/dL (1.8-2.4); POTASSIUM 3.5 mmol/L (3.5-5.1)
[2018-11-12 15:00] VITALS: BP 87/62
[2018-11-12 19:41] VITALS: BP 117/70
--- NOTE | 2018-11-12 20:24 | NUR ---
Assumed pt care this am, still on comfort care. PPN and IV fluids still running. NGT removed today, pt tolerated this well. Styill on aspiration precautions, started him with honey thickened apple juice in small amount and spaced out, this was tolerated well. OT came and was able to sit pt on the side of the bed, vs were stable during this event. Pt is more responsive now when asked question and has verbalized he has had no painb through out the day. He makes hi needs known and had a bm on the bed andino. FAmily is at bed side. Goal with PT tomorrow is to get the pt up and to sit in the chair for a few hours, endorsed to the night nurse. Pt was turned q2. PT is resting comfortably with the at the bed side.
--- NOTE | 2018-11-13 02:22 | NUR ---
PT SLEPT MOST OF THE NIGHT NO COMPLAINTS OF NAUSEA OR PAIN PT USED CALL LIGHT EFFECTIVELY NO ISSUES OVERNIGHT.
[2018-11-13 05:52] LABS: HEMATOCRIT 21.1 % (42.0-52.0); MCH 25.2 pg (26.0-34.0); MCHC 33.4 g/dL (28.0-37.0); MCV 75.7 fL (80.0-100.0); RBC 2.79 mil/uL (4.50-6.00); RDW 21.2 % (10.5-14.5); WBC 3.4 thou/uL (4.0-11.0)
[2018-11-13 08:35] VITALS: BP 98/62
--- NOTE | 2018-11-13 09:37 | HC ---
[facility] [address] [place] [address] CONSULTATION Name: FIOREMARGARITO Room #: 452-P ADM IN M.R.#: [id number] Admission: 11/03/18 ������������������ Attend Phys: Дмитрий Azar MD Discharge: ������������������ Date of : 32 Report #: [id number] THIS REPORT FOR: //name// CC: Ashok Azar REASON FOR CONSULTATION: Acute kidney injury. REASON FOR PRESENTATION: Nausea and vomiting. HISTORY OF PRESENT ILLNESS: This is an 88-year-old who is not able to provide me with the details of his history. He is known to have chronic kidney disease and was evaluated by our Nephrology service back in 2016. The patient had issues with persistent nausea and vomiting for 3 days. He was also having some issues with urination. He was brought for further evaluation. Family reported that he has been having some abdominal distention. They also reported that he has bilateral lower extremity swelling; however, this is chronic. Apparently, the patient has some spinal cord injury and has left with some residual deficit. I am not really sure about his mental status, but he is not able to provide me with any history at current. When he presented to the Emergency Room yesterday, he had a platelet count of 144, white blood cell count of 2.6. He was also hyperkalemic with a potassium of 5.2 and a creatinine of 3.6. It does look like that the patient has normal kidney function back in 09/2018. Back then, he was admitted and had an acute kidney injury; however, his kidney function has improved to a baseline of around 1.0. He also had some issues with acute kidney injury back in 2017; however, this also has resolved. He had bilateral renal cysts on his previous ultrasounds. PAST MEDICAL HISTORY: 1. Cervical cord injury. 2. Hernia repair. 3. Prostate surgery. 4. 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 5. GI bleeding due to a large duodenal bulb ulcer. REVIEW OF SYSTEMS: Unobtainable given the patient's mental status. MEDICATIONS: 1. Pantoprazole. 2. Flomax. FAMILY HISTORY: Unobtainable given the patient's mental status. SOCIAL HISTORY: Lives with his spouse. No reported drug or alcohol abuse. PHYSICAL EXAMINATION: [facility] [address] [facility] [place] [address] [facility] Room #: [address] [place] [address] IN M.R.#: [id number] Admission: 11/03/18 ������������������ Attend Phys: Дмитрий Azar MD Discharge: ������������������ Date of : 31 Report #: [id number] GENERAL: He is confused, disoriented, not able to communicate. VITAL SIGNS: Blood pressure was marginal at 97/57. HEAD AND NECK: No jugular venous distention. ENT: Dry mucous membrane. CHEST: No crackles. ABDOMEN: Distended. LOWER EXTREMITIES: +2 edema. LABORATORY DATA: Reviewed. White blood cell count 2.6, platelet 144. Creatinine is 3.6. Calcium is 10.7. ASSESSMENT, IMPRESSION, PLAN: 1. Acute kidney injury. 2. Hyperkalemia. 3. Pancytopenia. 4. Recent gastrointestinal bleeding. 5. The patient's acute kidney injury seems to be all prerenal. 6. Appropriate hydration was started for the patient and will continue with that. He currently has a Duval catheter and will continue with the Duval catheter, monitoring his urine output. 7. Watching electrolytes. 8. Avoiding nephrotoxins. 9. Hydration status is a major issue in this 88-year-old with what seems to be difficulty to keep him in a well-hydrated status given his age and his mental status, hence the recurrent acute kidney injury. This needs to be addressed with his family members. ��������������������������������������������� <ELECTRONICALLY SIGNED> ���������������������������������������� By: Ashok Pratt MD ��������������������������������������������� 11/13/18 [id number] [id number] Ashok Pratt MD /nt
[2018-11-13 09:45] VITALS: BP 98/46
--- NOTE | 2018-11-13 11:26 | NUR ---
Nutrition: Consider increase PPN to 90 mL/hr with 250 mL 20% lipids daily to meet higher percentage of pt's needs. NPO x 9 days, severe malnutrition and continued care.
[2018-11-13 12:55] VITALS: BP 85/59
--- NOTE | 2018-11-13 15:27 | NUR ---
DISCHARGE PLANNING. PER FAMILY REQUEST, PLAN IS TO GO HOME WITH [facility]. CLINICAL INFORMATION FAXED TO [facility]. CALL PLACED TO [facility], SPOKE WITH ROBERT, INTAKE LIAISON. ROBERT STATES PATIENT IS CURRENT WITH [facility] AND WILL PLACE PATIENT ON THEIR CENSUS ROSTER. ONCE DISCHARGE/HH ORDERS AND DISCHARGE SUMMARY RECEIVED FOR RESUMPTION OF HH CARE, ROBERT WILL FACILITATE HH NEEDS. FOLLOWING TO ASSIST. UNIT CM/SW AWARE.
--- NOTE | 2018-11-13 15:41 | NUR ---
TOWARDS POC PT A/O X2, BLOOD PRESSURE REMAINED LOW. DENIES PAIN, NO NV. PT/OT WORK WITH HIM, PT ABLE TO SIT TO CHAIR. 1 PRBC GIVEN, TOLERATED WELL. AT BEDSIDE. NO CONCERNS VOICED. WILL CONTINUE TO MONITOR.
--- NOTE | 2018-11-13 15:54 | NUR ---
SW reviewed chart and spoke with nursing and attending physician. Pt is more alert today and will be started on a diet. Recommendation made for pt to go to a post-acute facility. ODALIS met with pt and at bedside to discuss discharge plan. SW provided pt's with list of in-network facilities for review. Pt has been to [facility] in the past. Pt's states that they are not interested in a SNF at this time, and would like pt to return home with services. Pt was on service with [facility] prior to admission. ODALIS updated attending physician. wedding planner faxed updates to [facility]. ODALIS is following to assist as needed with discharge planning.
[2018-11-13 19:23] VITALS: BP 115/73
--- NOTE | 2018-11-14 00:59 | NUR ---
PT SLPET MOST OF THE NIGHT PT DID NOT COMPLAIN OF ANY PAIN OR NAUSEA NO ISSUES OVERNIGHT.
[2018-11-14 03:56] VITALS: BP 117/72
[2018-11-14 04:40] LABS: HEMATOCRIT 22.9 % (42.0-52.0); HEMOGLOBIN 7.6 gm/dL (14.0-18.0); MCH 25.7 pg (26.0-34.0); MCHC 33.3 g/dL (28.0-37.0); MCV 77.3 fL (80.0-100.0); RBC 2.97 mil/uL (4.50-6.00); RDW 20.8 % (10.5-14.5); WBC 4.7 thou/uL (4.0-11.0)
[2018-11-14 10:34] VITALS: BP 108/66
[2018-11-14 10:38] VITALS: BP 108/66
[2018-11-14] MEDS ORDERED: FERROUS SU220 MG/52 PO (14:26)
[2018-11-14] MEDS ORDERED: ALBUTEROL2.5 MG/0.5 INH (14:26)
[2018-11-14] MEDS ORDERED: ACETAMINOPHEN325 M1 PO (14:26)
[2018-11-14 15:14] VITALS: BP 109/62
--- NOTE | 2018-11-14 15:16 | NUR ---
ASSUMED PATIENT CARE AT 0715. A&OX1. MAX ASSIST TO STAND AND PIVOT TO CHAIR. PPN STILL RUNNING. TOLERATING PUREED, NECTAR THICK DIET. Q2 TURNS. BARRIER CREAM TO SACRAL AREA. SPOUSE AT BEDSIDE. PLAN WAS TO DISCHARGE HOME WITH HOME HEALTH TODAY. SPOUSE HAS BEEN REFUSING SKILLED STAY UNTIL 15OO TODAY WHEN DISHARGE WAS SET. SPOUSE INFORMED SOCIAL WORK THAT THEY WOULD LIKE TO DISCHARGE TO A FACILITY INSTEAD OF HOME. PATIENT MOST LIKELY UNABLE TO DISCHARGE UNTIL SATURDAY.
--- NOTE | 2018-11-14 15:23 | NUR ---
ODALIS reviewed chart and spoke with nursing and attending physician. Pt is medically stable for discharge home today with services. Discharge orders written to resume HH services with [facility]. ODALIS met with pt and at bedside to discuss discharge. Pt's states that now she wants pt to go to a SNF for rehab. SW explained that SNF placement has been discussed on multiple occasions and the SNF referral process has been declined. Pt's has indicated that she has wanted pt to return home and resume HH services. Pt's states she has not reviewed SNF list yet. SW reviewed list with pt's . Pt's requests referral to [facility], as pt has been there in the past. ODALIS explained that insurance will have to authorize SNF placement. SNF was not authorized during last hospitalization. ODALIS also explained that if pt is at home with HH and needs placement, SW can assist with placement. Pt's verbalized understanding and states that she wants to consider SNF placement at this time. ODALIS discussed with nursing and attending physician. Attending physician states pt is medically stable to d/c home with HH. ODALIS discussed with Director of Case Mgmt, who will meet with pt's . Discharge planned faxed referral to [facility]. Vicente post-acute liaison to come meet with pt and . Awaiting input from Vicente at this time. ODALIS is following to assist as needed [facility] discharge planning.
--- NOTE | 2018-11-14 17:18 | NUR ---
Met with at bedside with telemarketing representative from [facility]. Clarified 's intention for discharge plan as it has changed often. is now requesting attempt for skilled authorization. Lucy with [facility] submitted for authorization and anticipate an answer on Saturday. then stated "we had him there before and they denied us then". Asked if authorization could not be obtained what would be her next plan. stated clearly with telemarketing representative in the room to say "then I will take him home". Notified attending hospitalist, RN and [employer] of above.
[2018-11-14 19:36] VITALS: BP 122/69
--- NOTE | 2018-11-15 02:03 | NUR ---
PT SLEPT MOST OF THE NIGHT NO COMPLAINTS OF NAUSEA OR PAIN NO ISSUES OVERNIGHT.
[2018-11-15 03:49] VITALS: BP 103/59
[2018-11-15 08:19] VITALS: BP 109/49
[2018-11-15 14:59] VITALS: BP 115/59
[2018-11-15 19:39] VITALS: BP 131/59
--- NOTE | 2018-11-15 19:45 | NUR ---
Pt stable through out the shift, still on PPN and IV fluids. FC patent and draining yellow urine. Pt had 1 bm today. Diet of honey thick liquids and pureed food is tolerated, aspiration precautions in place. Pt is able to repond to questions though it takes timne and pt is hard pf hearing. Still on NC 2L of O2. is at the bed side and would feed the pt, educated the again on aspiration percautions. No issues or complaints verbalized by the pt for this shift.
[2018-11-16 04:30] VITALS: BP 113/55
--- NOTE | 2018-11-16 06:33 | NUR ---
progress pt sleeps most of time but does wake up and respond to questions. spouse at bedside assisting with cares and comforting pt. vss, ivf's infusing as ordered. miranda intact draining moderate amount of urine. wound to buttocks open with some bloody areas noted , beefy red tissue noted barrier cream applied. continue poc.
--- NOTE | 2018-11-16 09:30 | NUR ---
0800 PT TURNED AND RESPOSITIONED.PT ALERT TO SELF AND KNOWS . 0930 PT IS ASLEEP AND STATED THAT SHE WILL WAIT TO FEED HIM AND GIVE AM MEDS WHEN PATIENT WAKES UP. PT ASSESSED THIS AM. PT ALERT TO SELF AND KNOWS . PT HR CAROLE, IRREGULAR, HR 45-50.
[2018-11-16 10:06] VITALS: BP 97/56
[2018-11-16 15:16] VITALS: BP 108/58
[2018-11-16 19:23] VITALS: BP 129/64
--- NOTE | 2018-11-16 19:27 | NUR ---
PT UP TO CHAIR, MAX ASSIST X3. PT UNABLE AND TOO WEAK TO STAND ON HIS OWN. PT HAD LOOSE UNFORMED STOOLS X3 TODAY. PT HAS VERY POOR PO INTAKE AND STATES HE HAS NO APPETITE. PT OFFERED TO BE TURNED Q2 HOURS HOWEVER PT AND REFUSE AT TIME FOR PT TO BE TURNED. PT TAKES PILLS WHOLE OR CRUSHED IN APPLESAUCE BUT NEEDS CLOSE SUPERVISON DUE TO ASPIRATON RISK.
--- NOTE | 2018-11-17 03:03 | NUR ---
PT RESTED THROUGH MOST OF THE NIGHT PT TURNED Q2 PT GIVEN MORPHINE FOR PAIN ONCE NO ISSUES OVERNIGHT.
[2018-11-17 03:59] VITALS: BP 100/53
[2018-11-17 07:53] VITALS: BP 100/61
--- NOTE | 2018-11-17 12:40 | NUR ---
nurse discharge planner faxed updates to [facility] for insurance authorization. CM will follow up.
--- NOTE | 2018-11-17 15:42 | NUR ---
CM CHECKED WITH LIAISON AT [facility] AND SHE INDICATED THEY WERE STILL AWAITING AUTH. VIDYA TRIVEDI WITH [employer] CALLED AND INDICATED THAT SHE NEEDED UPDATED PT NOTE FROM TODAY. CARMEN SAW PT AND CM FAXED PT NOTE FOR HER REVIEW. AWAITING DETERMINIATION.
--- NOTE | 2018-11-17 16:37 | NUR ---
VALARIE WAS RECIEVED FOR PT TO GO SKILLED AT [facility] THIS DAY. AUTH NUMBER IS [id number]. ERWIN SPOKE WITH LIAISON AND THIS WAS CONVEYED. SHE INDICATED SHE WOULD SET UP [facility] FOR PT AND SPOUSE BETWEEN [phone] THIS EVENING. PT'S SPOUSE IS TO RIDE ALONG. PT AND SPOUSE ARE AWARE AND AGREEABLE. CHART COPY MADE. ORDERS TO BE FAXED ONCE COMPLETED. REPORT TO BE CALLED TO .
--- NOTE | 2018-11-17 17:32 | NUR ---
ASSUMED PATIENT CARE AT 0715. A&OX1. OPEN AREA ON SACRUM. Q2 TURNS AND BARRIER CREAM. MAX ASSIST TO CHAIR. GOT UP TO CHAIR WITH THERAPY. MAX ASSIST BACK TO BED. INCONTINENT OF BOWEL. GONZALEZ IN PLACE DUE TO RETENTION. PATIENT HAS BEEN CLEARED FOR DC SINCE LAST SATURDAY. [facility] ABLE TO ACCEPT PATIENT TODAY. PATIENT TRANSPORTED VIA [facility] WITH SPOUSE. GOALS MET FOR DC.
== END 2018-11-17 17:37 | DRG 177 ==
LOC: ER 01:44 → 4W 03:05 → EROBS 03:05 → 4W 03:42
PROVIDERS: Emergency Medicine; Hospitalist; Internal Medicine Gastroenterology; Nurse Practitioner; ADMIT Internal Medicine
PROC: 30233N1 Transfusion of Nonautologous Red Blood Cells into Peripheral Vein, Percutaneous Approach (ICD-10-PCS; principal; 2018-11-13)
DX: J69.0 Pneumonitis due to inhalation of food and vomit (principal); E43 Unspecified severe protein-calorie malnutrition; N17.9 Acute kidney failure, unspecified; D61.818 Other pancytopenia; E87.0 Hyperosmolality and hypernatremia; K56.690 Other partial intestinal obstruction; G93.40 Encephalopathy, unspecified; N40.0 Benign prostatic hyperplasia without lower urinary tract symptoms; D50.9 Iron deficiency anemia, unspecified; E87.5 Hyperkalemia; R33.9 Retention of urine, unspecified; K59.00 Constipation, unspecified; R62.7 Adult failure to thrive; Z68.22 Body mass index [BMI] 22.0-22.9, adult; Z91.81 History of falling; Z79.899 Other long term (current) drug therapy; Z80.8 Family history of malignant neoplasm of other organs or systems
CPT/HCPCS: 10045; 10047